=== PATIENT | male | born 1960 | race Caucasian/White ===

== ENCOUNTER 2020-02-13 15:41 | Outpatient (CLI) | payer OTHER, MEDICARE, SELFPAY ==
[2020-02-13 16:09] LABS: Hematocrit 45.7 % (42.0-52.0); Hemoglobin 15.5 g/dL (14.0-18.0); Mean Corpuscular HGB Conc 33.9 g/dl (32-36); Mean Corpuscular Hemoglobin 30.9 pg (26-34); Mean Platelet Volume 12.2 fl (7.4-10.4); Platelet Count Result 237 k/mm3 (150-375); Red Blood Count 5.02 M/mm3 (4.6-6.20); Red Cell Distribution Width 14.1 % (11.5-14.5); White Blood Count 8.9 K/mm3 (4.5-10.0)
[2020-02-13 16:18] LABS: Add Urine Microscopic? YES; Appearance Urine Clear (Clear); Bilirubin Urine Negative (Negative); Blood Urine Negative (Negative); Color Urine Straw (Yellow); Glucose Urine UA 3+ mg/dL (Negative); Ketones Urine Negative (Negative); Leukocyte Esterase Ur Negative LEU/UL (Negative); Mucus Urine Rare /lpf; Nitrate Urine Negative (Negative); Protein Urine Negative (Negative); RBC Urine 0-2 /hpf (0-2); Specific Grav Ur 1.012 (1.001-1.035); Squamous Epithelial Cell Urine Rare /hpf (Few); Urobilinogen Urine Negative mg/dL (<2.0); WBC Urine 0-3 /hpf
[2020-02-21 19:03] LABS: Blood Urea Nitrogen 21 mg/dL (9-20); Calcium 8.8 mg/dL (8.4-10.2); Carbon Dioxide 17 mmol/L (22-30); Chloride 94 mmol/L (98-107); Estimated Glomerular Filt Rate > 60; Glucose 380 mg/dL (75-110); Potassium 4.5 mmol/L (3.4-5.0); Sodium 130 mmol/L (137-145)
== END 2020-02-13 15:42 | disposition home or self-care (01) ==
PROVIDERS: PCP Family Medicine; Visit Provider Physician Assistant Medical
DX: R53.1 Weakness (principal); E11.65 Type 2 diabetes mellitus with hyperglycemia
CPT/HCPCS: 36415; 80048; 81001; 82607; 83036; 84443; 85027

== ENCOUNTER 2020-05-11 01:10 | Emergency (ER) | payer OTHER, MEDICARE, SELFPAY ==
[2020-05-11 01:10] VITALS: BP 174/86; PULSE 60; RESP 20; TEMP 36.6; O2SAT 96
[2020-05-11 01:25] LABS: Glucose Point of Care > 500 (65-105)
--- NOTE | 2020-05-11 01:45 | ECG_ITS ---
Measurements Intervals [place] Rate: 61 P: CA: 0 QRS: -89 QRSD: 174 T: 99 QT: 464 QTc: 468 Interpretive Statements ELECTRONIC VENTRICULAR PACEMAKER VENTRICULAR PREMATURE COMPLEXES UNDERLYING PROBABLY ATRIAL FIBRILLATION NO FURTHER INTERPRETATION IS POSSIBLE ABNORMAL ECG Electronically Signed On 05-11-2020 8:05:18 CDT by Andrew Davidson D.O.
--- NOTE | 2020-05-11 01:46 | ED.GENADULT ---
HPI - General Adult General Chief complaint: Fall Stated complaint: FALL Time Seen by Provider: 05/11/20 01:15 History of Present Illness HPI narrative: Patient presents with his for falling in the bedroom and urinating on himself on the floor. He has been feeling weak today. His sugar here is greater than 500, but he does not know what it runs at home because he does not check it. He is on both insulin and pills. She said he has been having tremor when he holds things and difficulty walking. He reports only a little pain in his left knee from the fall. He has not been sick in the last week or 2. His surgeries include a right knee replacement, and a defibrillator. He does not smoke cigarettes, occasionally drinks alcohol, does not do marijuana. Onset (ago): hour(s) Related Data Home Medications Medication Instructions Recorded Confirmed divalproex 500 mg tablet,delayed 500 mg PO Q12H 10/30/19 release insulin NPH isoph U-100 human 100 72 unit SUB-Q BID ml 10/30/19 unit/mL subcutaneous suspension insulin aspart U-100 100 unit/mL 1 sliding scale dose SUB-Q 10/30/19 subcutaneous solution USEASDIRECTD metoprolol succinate 100 mg 150 mg PO DAILY tablet 10/30/19 tablet,extended release 24 hr warfarin 5 mg tablet 5 mg PO QTUTHSASU 10/30/19 Allergies Allergy/AdvReac Type Severity Reaction Status Date / Time No Known Allergies Allergy Verified 05/11/20 01:18 Review of Systems Review of Systems: Narrative: CONSTITUTIONAL: Denies fever, chills, or sweats. EYES: Denies visual changes, redness, or discharge. ENT: Denies rhinorrhea, congestion, sore throat, or otalgia. CARDIOVASCULAR: Denies chest pain, palpitations, or edema. RESPIRATORY: Denies cough or dyspnea. GASTROINTESTINAL: Denies abdominal pain, but he did have nausea, and vomiting. GENITOURINARY: Denies dysuria or hematuria. He did have urinary incontinence at home. SKIN: Denies rash or itching. MUSCULOSKELETAL: Denies back pain, joint pain, or myalgia. Discomfort in the left knee from the fall. NEUROLOGIC: Denies headache, numbness, but has weakness. . [facility] Past Medical History Medical History (Updated 05/11/20 @ 04:00 by Latoya Womack MD) Anticoagulation management encounter Atrial fibrillation with RVR Essential hypertension Obstructive sleep apnea Surgical History Surgical History (Updated 05/11/20 @ 01:49 by Latoya Womack MD) History of knee replacement Social History Social History Smoking status: Never smoker Alcohol intake: current Exam Narrative: Exam Narrative: GENERAL: Well-appearing, well-nourished, and in no acute distress. Morbid obesity. HEAD: Normocephalic, atraumatic. EYES: PERRLA and EOMI. ENT: Nares clear, no rhinorrhea or epistaxis. Mucous membranes moist. NECK: Supple. CHEST: Clear to auscultation. No respiratory distress. HEART: Regular rate and rhythm. No murmur heard. Normal peripheral pulses. ABDOMEN: Soft, nontender, nondistended, normal active bowel sounds. EXTREMITIES: Normal range of motion. No edema. Abrasions on the left knee. SKIN: Warm, dry, no rash. NEURO: No focal deficits. Alert and oriented x3. PSYCH: Normal mood and affect. Course Reevaluation(s) Reevaluation #1: The patient feels better after the IV fluids and the lower blood sugar. We talked about the high triglycerides, and the said that has been not addressed since he moved here in 2018. She has been having trouble with the insurance coverage for his diabetic supplies. She also is having trouble caring for him at home, as he will not use the walker and has frequent falls. She also complains that he occasionally has a tremor and has trouble holding things. I offered her to see Dr. Sharif for follow-up, and she accepts. She does not need any refills, and she is willing to take him back home. I suggested that if he does not improve, that she might need additional care an
[2020-05-11 01:52] LABS: Add Urine Microscopic? YES; Appearance Urine Clear (Clear); Bilirubin Urine Negative (Negative); Blood Urine Negative (Negative); Color Urine Straw (Yellow); Glucose Urine UA 3+ mg/dL (Negative); Ketones Urine Trace mg/dL (Negative); Leukocyte Esterase Ur Negative LEU/UL (Negative); Nitrate Urine Negative (Negative); Protein Urine 2+ mg/dL (Negative); RBC Urine 0-2 /hpf (0-2); Squamous Epithelial Cell Urine Rare /hpf (Few); Urobilinogen Urine Negative mg/dL (<2.0); WBC Urine 0-3 /hpf
[2020-05-11] MEDS: INSULIN HUMAN REGULAR (*BKC) 100 UNITS/ML 13 UNITS IV PUSH ×2 (01:59→03:13)
[2020-05-11] MEDS: SODIUM CHLORIDE 0.9% IV 1,000 ML 999 ML IV CONT ×2 (01:59→03:13)
[2020-05-11 02:01] VITALS: BP 153/68; PULSE 61; RESP 20; O2SAT 95
[2020-05-11 02:12] LABS: Specific Grav Ur 1.035 (1.001-1.035)
[2020-05-11 02:25] LABS: Basophils Absolute Auto 0.1 K/mm3 (0.0-0.1); Basophils Percent Auto 0.6 % (0.2-1.2); Hematocrit 44.7 % (42.0-52.0); Immature Granulocyte Absolute 0.32 K/mm3 (0.00-0.031); Immature Granulocyte Percent A 2.5 % (0-0.5); Immature Platelet Fraction Pct 5.5 % (0.9-11.2); Lymphocytes Absolute Auto 1.91 K/mm3 (0.9-3.2); Lymphocytes Percent Auto 14.9 % (18.3-44.2); Mean Corpuscular Volume 87.6 fl (80-100); Mean Platelet Volume 11.9 fl (7.4-10.4); Monocytes Percent Auto 8.1 % (2.6-8.5); Neutrophils Absolute Auto 9.4 K/mm3 (1.3-6.7); Neutrophils Percent Auto 73.9 % (45.5-73.1); Platelet Count Result 269 k/mm3 (150-375); Red Cell Distribution Width 13.5 % (11.5-14.5); White Blood Count 12.8 K/mm3 (4.5-10.0)
[2020-05-11 02:44] VITALS: BP 155/70; PULSE 60; RESP 20; O2SAT 97
[2020-05-11 02:44] LABS: Potassium 4.5 mmol/L (3.4-5.0)
[2020-05-11 02:45] LABS: Blood Urea Nitrogen 14 mg/dL (9-20); Chloride 94 mmol/L (98-107); Estimated Glomerular Filt Rate > 60
[2020-05-11 02:46] LABS: Glucose 474 mg/dL (75-110)
[2020-05-11 02:47] LABS: Glucose Point of Care 343 (65-105)
[2020-05-11 02:47] LABS: Sodium 128 mmol/L (137-145)
[2020-05-11 03:43] LABS: Base Excess ABG 0.3 mEq/l (+/-2.0); Fractional Inspired Oxygen 21 %; HCO3 ABG 24.8 mEq/l (22.0-26.0); Oxyhemoglobin 94.2 % THb (90.0-100.0); PCO2 ABG 39.7 mmHg (35.0-45.0); Total Hemoglobin 13.5 g/dL (12.0-18.0)
[2020-05-11 03:44] LABS: Device ROOM AIR; Modified Allen's Test Pass; Site Drawn RIGHT RADIAL
[2020-05-11 03:53] LABS: pH ABG 7.414 (7.350-7.450)
[2020-05-11 04:05] VITALS: BP 159/59; PULSE 60; RESP 20; O2SAT 96
[2020-05-11 04:21] LABS: Glucose Point of Care 199 (65-105)
== END 2020-05-11 04:20 | disposition home or self-care (01) ==
PROVIDERS: Emergency Provider Emergency Medicine; PCP Family Medicine
DX: E11.65 Type 2 diabetes mellitus with hyperglycemia (principal); R29.6 Repeated falls; I49.3 Ventricular premature depolarization; R53.1 Weakness; I48.91 Unspecified atrial fibrillation; Z79.01 Long term (current) use of anticoagulants; I10 Essential (primary) hypertension; G47.33 Obstructive sleep apnea (adult) (pediatric); Z96.659 Presence of unspecified artificial knee joint; Z95.0 Presence of cardiac pacemaker; Z79.84 Long term (current) use of oral hypoglycemic drugs; Z79.4 Long term (current) use of insulin
CPT/HCPCS: 36415; 36600; 80048; 80053; 81001; 82010; 82805; 82948; 83735; 83880; 84100; 84484; 85025; 85055; 93005; 96361; 96374; 96376; 99284; J1815; J7030

== ENCOUNTER 2020-05-12 15:05 | Emergency (ER) | payer OTHER, MEDICARE, SELFPAY ==
--- NOTE | ~2020-05-12 | XR_ITS ---
EXAMINATION: XR chest 2V DATE: 05/12/2020 15:39 INDICATION: Hypertension. Frequent falls. TECHNIQUE: Frontal and lateral views of the chest were obtained. COMPARISON: Chest 2 views 07/08/2019 FINDINGS: There is no pneumonia, pleural effusion, or pneumothorax. Cardiomegaly is noted. There is a left chest pacer/defibrillator with leads in right ventricle and coronary sinus. Surgical clips in t he right upper quadrant are likely from cholecystectomy. IMPRESSION: 1. Cardiomegaly. Reviewed, dictated and finalized at location A. IMPRESSION: 1. Cardiomegaly.
--- NOTE | ~2020-05-12 | CT_ITS ---
EXAMINATION: CT brain wo con DATE: 05/12/2020 16:13 INDICATION: Weakness. Neurological symptoms. TECHNIQUE: Computed tomography (CT) of the head was performed without intravenous contrast. The mA wa s adjusted according to patient size. Iterative reconstruction technique was employed. The dose-lengt h product was 681.00 mGy-cm. COMPARISON: Head CT 03/19/2019, brain MRI 04/12/2019 FINDINGS: There are scattered areas of low attenuation in the cerebral white matter. There is no intr acranial hemorrhage, acute infarction, or abnormal intracranial mass lesion. The ventricles are munira l in size. There is mild mucosal thickening in the paranasal sinuses. The orbits are normal. The mast oid air cells are normal. IMPRESSION: 1. Stable mild nonspecific cerebral white matter disease, which likely represents chronic small vesse l ischemic disease. Reviewed, dictated and finalized at location A. IMPRESSION: 1. Stable mild nonspecific cerebral white matter disease, which likely represen ts chronic small vessel ischemic disease.
[2020-05-12 15:11] VITALS: BP 154/100; PULSE 63; RESP 19; TEMP 36.8; O2SAT 100
--- NOTE | 2020-05-12 15:11 | ECG_ITS ---
Measurements Intervals [place] Rate: 60 P: OR: 0 QRS: -72 QRSD: 153 T: -22 QT: 484 QTc: 484 Interpretive Statements ELECTRONIC VENTRICULAR PACEMAKER UNDERLYING PROBABLY ATRIAL FIBRILLATION BASELINE ARTIFACT- I NO FURTHER INTERPRETATION IS POSSIBLE ABNORMAL ECG Electronically Signed On 05-12-2020 15:38:10 CDT by Andrew Davidson D.O.
[2020-05-12 15:29] LABS: Basophils Absolute Auto 0.1 K/mm3 (0.0-0.1); Basophils Percent Auto 1.3 % (0.2-1.2); Eosinophils Percent Auto 0.3 % (0-4.4); Hematocrit 42.4 % (42.0-52.0); Hemoglobin 15.2 g/dL (14.0-18.0); Immature Granulocyte Absolute 0.26 K/mm3 (0.00-0.031); Immature Granulocyte Percent A 3.9 % (0-0.5); Lymphocytes Absolute Auto 1.99 K/mm3 (0.9-3.2); Lymphocytes Percent Auto 29.6 % (18.3-44.2); Mean Corpuscular HGB Conc 35.8 g/dl (32-36); Mean Corpuscular Hemoglobin 32.8 pg (26-34); Mean Corpuscular Volume 91.6 fl (80-100); Mean Platelet Volume 12.2 fl (7.4-10.4); Monocytes Absolute Auto 0.5 K/mm3 (0.1-0.6); Monocytes Percent Auto 7.6 % (2.6-8.5); Neutrophils Absolute Auto 3.9 K/mm3 (1.3-6.7); Neutrophils Percent Auto 57.3 % (45.5-73.1); Platelet Count Result 182 k/mm3 (150-375); Red Blood Count 4.63 M/mm3 (4.6-6.20); Red Cell Distribution Width 13.7 % (11.5-14.5); White Blood Count 6.7 K/mm3 (4.5-10.0)
--- NOTE | 2020-05-12 18:23 | ED.GENADULT ---
HPI - General Adult General Chief complaint: Weakness Stated complaint: neurological symptoms Time Seen by Provider: 05/12/20 18:07 History of Present Illness HPI narrative: Patient is a 59 y/o male complaining of frequent fall. He states that he was evaluated here in ED for hyperglycemia 2 days ago. He feels unsteady and fell after he was discharged. He contacted his PCP today and was told to return to ED for evaluation of possible stroke. He states that he has mild back pain due to the fall. He denies passing out. He denies any focal weakness/numbness or any difficulty with speech. He has been falling frequently, perhaps twice weekly for last 2 months. He states that he is up to date on Tetanus shot and his last one was 2 years ago. Related Data Home Medications Medication Instructions Recorded Confirmed divalproex 500 mg tablet,delayed 500 mg PO Q12H 10/30/19 release insulin NPH isoph U-100 human 100 72 unit SUB-Q BID ml 10/30/19 unit/mL subcutaneous suspension insulin aspart U-100 100 unit/mL 1 sliding scale dose SUB-Q 10/30/19 subcutaneous solution USEASDIRECTD metoprolol succinate 100 mg 150 mg PO DAILY tablet 10/30/19 tablet,extended release 24 hr warfarin 5 mg tablet 5 mg PO QTUTHSASU 10/30/19 Allergies Allergy/AdvReac Type Severity Reaction Status Date / Time No Known Allergies Allergy Verified 05/11/20 01:18 Review of Systems Constitutional: Constitutional: Denies chills, Denies fever(s), Denies headache(s) and Denies weakness Eyes: Eyes: Denies blurry vision ENT: Denies headache(s) and Denies neck pain Cardiovascular: Cardiovascular: Denies chest pain and Denies dyspnea Respiratory: Respiratory: Denies cough and Denies dyspnea Gastrointestinal: Gastrointestinal: Denies abdominal pain, Denies diarrhea, Denies nausea and Denies vomiting Genitourinary: Genitourinary: Denies hematuria and Denies dysuria Musculoskeletal: Musculoskeletal: Denies back pain and Denies neck pain Neurologic: Reports as per HPI, Denies headache(s), Reports lack of coordination and Denies weakness PMFSH Past Medical History Medical History Anticoagulation management encounter Atrial fibrillation with RVR Essential hypertension Obstructive sleep apnea Surgical History Surgical History History of knee replacement Family History Family History Other Diabetes mellitus Family history of Alzheimer's disease Family history of coronary artery disease Social History Social History Smoking status: Never smoker Alcohol intake: current Gender identity (if verbalized by the patient): Male Exam Const: General: no acute distress and well developed Orientation/consciousness: oriented to person, oriented to place, oriented to time and patient oriented x3 HENMT: Head: normocephalic Ears: external ears normal General nose exam: Normal external nose present Eyes: General: appearance normal, both eyes and all related structures Conjunctivae: conjunctivae normal Neck: Neck: normal visual inspection and full ROM Chest: Chest palpation & inspection: normal inspection of the chest and no tenderness Resp: Effort & Inspection: normal respiratory effort Auscultation: clear to auscultation bilaterally Cardio: Rate: regular rate Rhythm: regular rhythm GI: GI Palp: No abdominal tenderness and Yes Soft to palpation Skin: General skin exam: normal color and turgor normal Trauma: abrasion (left knee) Neuro: General: oriented to person, oriented to place, oriented to time and patient oriented x3 Cranial nerves: Yes CN's II-XII intact bilaterally Cognition (Neuro): normal cognition Speech: normal speech Motor exam (neuro): 5/5 motor strength present throughout Sensory Exam: normal sensation Coordi
[2020-05-12 19:11] LABS: INR 1.2; Prothrombin Time 14.5 Seconds (11.1-14.7)
[2020-05-12 19:12] LABS: Partial Thromboplastin Time 27.8 SECONDS (22.3-36.8)
[2020-05-12 20:00] VITALS: BP 158/89; PULSE 64; RESP 15; O2SAT 97
--- NOTE | 2020-05-12 20:30 | PC.NURSE ---
talked to lab after multiple specimens were unreceived, had lab come up and draw pt and their draw was unrecived, lab said blood was to fatty
[2020-05-12 20:46] LABS: Add Urine Microscopic? YES; Appearance Urine Clear (Clear); Bilirubin Urine Negative (Negative); Blood Urine Negative (Negative); Color Urine Yellow (Yellow); Glucose Urine UA 3+ mg/dL (Negative); Ketones Urine 1+ mg/dL (Negative); Leukocyte Esterase Ur Negative LEU/UL (Negative); Mucus Urine Few /lpf; Nitrate Urine Negative (Negative); Protein Urine 2+ mg/dL (Negative); Squamous Epithelial Cell Urine Rare /hpf (Few); WBC Urine 0-3 /hpf
[2020-05-12 20:58] LABS: Specific Grav Ur 1.036 (1.001-1.035)
[2020-05-12 21:00] VITALS: BP 160/89; PULSE 60; RESP 16; O2SAT 98
[2020-05-12 21:31] LABS: Sodium 135 mmol/L (137-145)
[2020-05-12 21:32] LABS: Bilirubin,Total 0.8 mg/dL (0.2-1.3); Blood Urea Nitrogen 16 mg/dL (9-20); Calcium 8.7 mg/dL (8.4-10.2); Carbon Dioxide 22 mmol/L (22-30); Chloride 99 mmol/L (98-107); Estimated CRCL calculation 120 ml/min; Estimated Glomerular Filt Rate > 60; Glucose 259 mg/dL (75-110)
[2020-05-12 21:57] VITALS: BP 161/90; PULSE 60; RESP 16; O2SAT 98
== END 2020-05-12 22:23 | disposition home or self-care (01) ==
PROVIDERS: Emergency Medicine; Emergency Provider Emergency Medicine; PCP Family Medicine
DX: S80.212A Abrasion, left knee, initial encounter (principal); I48.91 Unspecified atrial fibrillation; Z79.01 Long term (current) use of anticoagulants; G47.30 Sleep apnea, unspecified; W19.XXXA Unspecified fall, initial encounter
CPT/HCPCS: 36415; 70450; 71046; 80053; 80164; 81001; 82948; 85025; 85610; 85730; 93005; 99284

== ENCOUNTER 2020-05-29 08:21 | Outpatient (CLI) | payer OTHER, MEDICARE, SELFPAY ==
[2020-05-29 09:27] LABS: LDL Cholesterol Direct < 30 mg/dL
[2020-05-29 10:11] LABS: Cholesterol 256 mg/dL (0-200); Glucose 370 mg/dL (75-110)
[2020-05-29 10:20] LABS: Triglycerides > 2625 mg/dL (<150)
[2020-06-02 07:21] LABS: Glutamic acid decarboxylase AA <5 IU/mL (<5)
[2020-06-05 22:26] LABS: Islet Cell Antibody Screen NEGATIVE (NEGATIVE)
== END 2020-05-29 08:22 | disposition home or self-care (01) ==
LOC: ANHLAB 08:26
PROVIDERS: PCP Family Medicine; Visit Provider Internal Medicine Endocrinology, Diabetes & Metabolism
DX: E11.69 Type 2 diabetes mellitus with other specified complication (principal); E66.9 Obesity, unspecified
CPT/HCPCS: 36415; 80061; 82947; 84681; 86341

== ENCOUNTER 2020-07-01 17:01 | Outpatient (CLI) | payer OTHER, MEDICARE, SELFPAY ==
--- NOTE | ~2020-07-01 | US_ITS ---
US venous doppler [facility] DATE: 07/01/2020 17:31 INDICATION: Localized edema lower extremities TECHNIQUE: Real-time and color flow imaging and Doppler analysis of the veins of the lower extremitie s COMPARISON: 12/30/2018 bilateral lower extremity venous duplex examination FINDINGS: There is spontaneous and phasic flow and normal augmentation and color flow signal and norm al compression of the deep veins of both lower extremities. The greater saphenous veins are patent. IMPRESSION: No evidence of deep venous thrombosis of the lower extremities Reviewed, dictated and finalized at Location A. Reviewed, dictated and finalized at location A.
[2020-07-01 17:52] LABS: Hematocrit 41.2 % (42.0-52.0); Hemoglobin 13.6 g/dL (14.0-18.0); Mean Corpuscular Hemoglobin 30.4 pg (26-34); Mean Corpuscular Volume 92.2 fl (80-100); Mean Platelet Volume 11.4 fl (7.4-10.4); Platelet Count Result 199 k/mm3 (150-375); Red Blood Count 4.47 M/mm3 (4.6-6.20); Red Cell Distribution Width 13.7 % (11.5-14.5); White Blood Count 9.5 K/mm3 (4.5-10.0)
[2020-07-01 18:02] LABS: INR 1.1; Prothrombin Time 13.9 Seconds (11.1-14.7)
[2020-07-01 18:05] LABS: Alanine Aminotransferase 26 U/L (4-50); Albumin Level 4.3 g/dL (3.5-5.1); Alkaline Phosphatase 58 U/L (38-126); Anion Gap 10 mmol/L (8-16); Aspartate Amino Transferase 24 U/L (17-59); Bilirubin,Total 0.6 mg/dL (0.2-1.3); Blood Urea Nitrogen 15 mg/dL (9-20); Carbon Dioxide 25 mmol/L (22-30); Chloride 103 mmol/L (98-107); Cholesterol 120 mg/dL (0-200); Estimated Glomerular Filt Rate > 60; Glucose 86 mg/dL (75-110); HDL Direct 26 mg/dL; Potassium 4.6 mmol/L (3.4-5.0); Sodium 138 mmol/L (137-145); Triglycerides 291 mg/dL (<150)
[2020-07-01 18:15] LABS: LDL Cholesterol Direct 53 mg/dL
== END 2020-07-01 17:02 | disposition home or self-care (01) ==
PROVIDERS: Internal Medicine Endocrinology, Diabetes & Metabolism; PCP Family Medicine; Visit Provider Nurse Practitioner Family
DX: R60.0 Localized edema (principal); E11.65 Type 2 diabetes mellitus with hyperglycemia; E66.9 Obesity, unspecified; E78.1 Pure hyperglyceridemia; Z87.19 Personal history of other diseases of the digestive system; Z92.29 Personal history of other drug therapy
CPT/HCPCS: 36415; 80053; 80061; 85027; 85610; 93970

== ENCOUNTER 2020-08-26 10:53 | Outpatient (CLI) | payer OTHER, MEDICARE, SELFPAY ==
--- NOTE | ~2020-08-26 | XR_ITS ---
EXAMINATION: XR chest 2V DATE: 08/26/2020 11:54 INDICATION: Shortness of breath TECHNIQUE: PA and lateral views of the chest were obtained. COMPARISON: Chest radiograph dated 05/12/2020 FINDINGS: New elevation of the right hemidiaphragm. No airspace opacities, pulmonary edema, pleural effusion or pneumothorax. Cardiomegaly. Three lead pacemaker/AICD seen with leads projecting over the expected l ocations of the right atrial appendage, apex of the right ventricle and overlying the left ventricle likely having traversed the coronary sinus. Cholecystectomy clips in the right upper quadrant. Mild t horacic spondylosis. IMPRESSION: 1. New elevation of the right hemidiaphragm. No acute cardiopulmonary disease. 2. Cardiomegaly. Reviewed, dictated and finalized at location B.
[2020-08-26 11:43] LABS: Basophils Percent Auto 0.6 % (0.2-1.2); Eosinophils Absolute Auto 0.1 K/mm3 (0-0.3); Eosinophils Percent Auto 1.3 % (0-4.4); Hematocrit 46.4 % (42.0-52.0); Hemoglobin 15.1 g/dL (14.0-18.0); Immature Granulocyte Absolute 0.08 K/mm3 (0.00-0.031); Immature Granulocyte Percent A 1.1 % (0-0.5); Lymphocytes Absolute Auto 2.77 K/mm3 (0.9-3.2); Lymphocytes Percent Auto 39.3 % (18.3-44.2); Mean Corpuscular HGB Conc 32.5 g/dl (32-36); Mean Corpuscular Volume 86.1 fl (80-100); Mean Platelet Volume 11.8 fl (7.4-10.4); Monocytes Absolute Auto 0.7 K/mm3 (0.1-0.6); Monocytes Percent Auto 9.8 % (2.6-8.5); Neutrophils Absolute Auto 3.4 K/mm3 (1.3-6.7); Neutrophils Percent Auto 47.9 % (45.5-73.1); Platelet Count Result 171 k/mm3 (150-375); Red Blood Count 5.39 M/mm3 (4.6-6.20); Red Cell Distribution Width 13.2 % (11.5-14.5); White Blood Count 7.1 K/mm3 (4.5-10.0)
[2020-08-26 11:55] LABS: Anion Gap 9 mmol/L (8-16); Blood Urea Nitrogen 18 mg/dL (9-20); Calcium 9.3 mg/dL (8.4-10.2); Carbon Dioxide 32 mmol/L (22-30); Chloride 100 mmol/L (98-107); Estimated Glomerular Filt Rate > 60; Glucose 229 mg/dL (75-110); Potassium 4.6 mmol/L (3.4-5.0); Sodium 141 mmol/L (137-145)
[2020-08-26 12:03] LABS: NT Pro B Type Natriuretic Pept 1960 PG/ML (5-100)
== END 2020-08-26 10:54 | disposition home or self-care (01) ==
PROVIDERS: PCP Family Medicine; Visit Provider Nurse Practitioner Family
DX: R06.02 Shortness of breath (principal); M25.471 Effusion, right ankle; M25.472 Effusion, left ankle; R05 Cough; D64.9 Anemia, unspecified
CPT/HCPCS: 36415; 71046; 80048; 83880; 85025

== ENCOUNTER 2020-09-03 08:23 | Outpatient (CLI) | payer OTHER, MEDICARE, SELFPAY ==
--- NOTE | ~2020-09-03 | XR_ITS ---
EXAMINATION: XR lumbar spine 2-3V EXAM DATE: 09/03/2020 08:55 INDICATION: M54.5 - Low back pain- Injury X 3 Months Ago . TECHNIQUE: Lumber spine frontal, lateral, lateral L5-S1 projections for interpretation. There is no prior study for comparison. FINDINGS: The vertebral bodies are aligned in the AP dimension. There is mild diffuse lumbar disc di sease. Mild to moderate lower lumbar facet arthropathy. Sacrum, sacroiliac joints, sacral arcuate rodo es are intact. There are no bony erosions identified. Paraspinal soft tissue is unremarkable. No spon dylolysis suspected. IMPRESSION: Mild lumbar disc disease, mild to moderate arthropathy. Reviewed, dictated and finalized at location B. VITY ASSISTANT
== END 2020-09-03 08:24 | disposition home or self-care (01) ==
PROVIDERS: PCP Family Medicine; Visit Provider Nurse Practitioner Family
DX: M54.5 Low back pain (principal); M51.86 Other intervertebral disc disorders, lumbar region; M12.88 Other specific arthropathies, not elsewhere classified, other specified site
CPT/HCPCS: 72100

== ENCOUNTER 2020-09-03 14:54 | Observation (INO) | payer OTHER, MEDICARE, SELFPAY ==
[2020-09-03] VITALS (7 sets, daily range): BP systolic 136–144; BP diastolic 70–88; PULSE 60–80; RESP 16–20; TEMP 36.8; O2SAT 97–98; BMI 40.8
--- NOTE | ~2020-09-03 | CT_ITS ---
EXAMINATION: CT brain wo con EXAM DATE: 09/03/2020 16:08 INDICATION: Fall. Weakness. TECHNIQUE: Spiral CT of the head was performed without contrast. Axial, coronal and sagittal images were reviewed. The dose-length product (DLP) for this examination was 605.33 mGy-cm. The exposure w as tailored according to patient size, and iterative reconstruction (ASIR) was used as additional dos e reduction technique. Comparison is made to prior examination from 05/12/2020. FINDINGS: There is no acute intraparenchymal hemorrhage. No evidence of intraparenchymal brain mass lesion. No evidence of acute infarction. Please note that initial head CT has limited sensitivity f or small or acute infarctions. There is mild periventricular and subcortical hypodensity, nonspecific but probably related to small vessel ischemic disease. There is mild prominence of the sulci and v entricles related to cerebral atrophy. There is intracranial carotid arteriosclerosis. There are n o extra-axial collections. There is no mass effect or midline shift. The orbits are unremarkable. Soft tissue is unremarkable. The visualized sinuses and mastoid air cells are well aerated. IMPRESSION: 1. No acute intracranial findings. 2. Chronic age related findings. Reviewed, dictated and finalized at location B. WARE LICENSING ANALYST
--- NOTE | ~2020-09-03 | XR_ITS ---
EXAMINATION: XR chest 1V portable DATE: 09/03/2020 16:13 INDICATION: Alteration of awareness. TECHNIQUE: A single frontal view of the chest was obtained. COMPARISON: Chest 2 views 08/26/2020 FINDINGS: Again seen is mild elevation of right hemidiaphragm. No pleural effusion or pneumothorax. C ardiomegaly is noted. There is a left chest pacer/defibrillator with leads in right ventricle and cor onary sinus. Surgical clips in the right upper quadrant are likely from cholecystectomy. IMPRESSION: 1. Cardiomegaly. Reviewed, dictated and finalized at location A. SAW OPERATOR IMPRESSION: 1. Cardiomegaly.
--- NOTE | 2020-09-03 15:49 | ED.GENADULT ---
HPI - General Adult General Chief complaint: Unspecified Stated complaint: sob with exertion, freq falls he needs admission Time Seen by Provider: 09/03/20 15:35 Source: RN notes reviewed History of Present Illness HPI narrative: Patient presents emergency department from home for weakness. History is per the patient and the . For the past several months the patient's been progressively becoming more weak with frequent falls on almost daily basis. Per the the patient is on Coumadin and she has to work and is not at home to help during the day the patient has been discussed with walking with a cane or walker but does not use these at home and the patient has had several falls in the past week. They called his PCP and recommended come to the ED for further evaluation. Patient denies having any headaches vision changes chest painabdominal pain nausea vomiting diarrhea or any other symptoms. The patient does note that he did does have shortness of breath with exertion Related Data Home Medications Medication Instructions Recorded Confirmed insulin aspart U-100 100 unit/mL 1 sliding scale dose SUB-Q 10/30/19 08/18/20 subcutaneous solution USEASDIRECTD omega-3 fatty acids 1,000 mg 1,000 mg PO DAILY 05/28/20 08/18/20 capsule vitamin E (dl, acetate) 400 unit 450 mg PO DAILY 05/28/20 08/18/20 capsule metoprolol succinate 100 mg See Rx Instructions .ROUTE 06/11/20 08/18/20 tablet,extended release 24 hr .COMPLEX tablet Allergies Allergy/AdvReac Type Severity Reaction Status Date / Time No Known Allergies Allergy Verified 09/03/20 15:35 Review of Systems Review of Systems: Narrative: Gen.: Denies fevers or chills Eyes: Denies eye pain or visual change ENT: Denies congestion Respiratory: Reports shortness of breath with exertion CV: Denies chest pain or palpitations GI: Denies abdominal pain nausea, emesis or diarrhea denies burning, urgency, frequency or hematuria Musculoskeletal: Denies back pain or muscle pain Neuro: Reports weakness Skin: Denies rash Except as documented, all other systems reviewed and negative [facility] Past Medical History Medical History (Updated 09/03/20 @ 18:41 by Heriberto Valle DO) Anticoagulation management encounter Atrial fibrillation with RVR Depression Diabetes Essential hypertension Glaucoma Hyperlipidemia, unspecified Hypertension Obesity Obstructive sleep apnea Pacemaker Progressive neurological deficit SOB (shortness of breath) Surgical History Surgical History History of cholecystectomy History of knee replacement S/P TKR (total knee replacement) Family History Family History Other Diabetes mellitus Family history of Alzheimer's disease Family history of coronary artery disease Social History Social History Smoking status: Never smoker Alcohol intake: current Substance use: never Substance use type: does not use Gender identity (if verbalized by the patient): Male Exam Narrative: Exam Narrative: APPEARANCE: No acute distress, nontoxic, resting in bed EYES: EOMI, PERRL HEENT: Normocephalic, atraumatic, OMM RESPIRATORY: No respiratory distress Clear to auscultation bilaterally with no rhonchi wheezing or rales. CARDIOVASCULAR: Regular rate and rhythm without murmurs rubs or gallops. ABDOMINAL: Soft, nontender, nondistended, no rebound or guarding MUSCULOSKELETAl: Moves all extremities. No clubbing, cyanosis or edema. NEURO: Awake and alert x 4. Following commands, speech normal, no focal deficits muscle strength 5 out of 5 in the bilateral upper and lower extremities SKIN:: Warm, dry. No rashes lesions or abrasions PSYCHIATRIC: Normal affect/mood, Course Course Emergency Course: Had extensive discussion with patient and regarding possible fci plac
--- NOTE | 2020-09-03 15:51 | ECG_ITS ---
Measurements Intervals [place] Rate: 60 P: [place]: 0 QRS: 268 QRSD: 169 T: 112 QT: 491 QTc: 491 Interpretive Statements ELECTRONIC VENTRICULAR PACEMAKER BASELINE ARTIFACT- I, III, AVL, V1-V3 NO FURTHER INTERPRETATION IS POSSIBLE ATYPICAL ECG Electronically Signed On 09-03-2020 17:47:26 THREAD TWISTER by Andrew Davidson D.O.
[2020-09-03 16:01] LABS: Basophils Absolute Auto 0.1 K/mm3 (0.0-0.1); Basophils Percent Auto 0.5 % (0.2-1.2); Eosinophils Absolute Auto 0.9 K/mm3 (0-0.3); Eosinophils Percent Auto 9.6 % (0-4.4); Hematocrit 47.9 % (42.0-52.0); Immature Granulocyte Absolute 0.07 K/mm3 (0.00-0.031); Immature Granulocyte Percent A 0.8 % (0-0.5); Lymphocytes Absolute Auto 3.17 K/mm3 (0.9-3.2); Lymphocytes Percent Auto 34.7 % (18.3-44.2); Mean Corpuscular HGB Conc 33.4 g/dl (32-36); Mean Corpuscular Hemoglobin 28.7 pg (26-34); Mean Platelet Volume 12.3 fl (7.4-10.4); Monocytes Absolute Auto 0.8 K/mm3 (0.1-0.6); Monocytes Percent Auto 9.2 % (2.6-8.5); Neutrophils Absolute Auto 4.1 K/mm3 (1.3-6.7); Neutrophils Percent Auto 45.2 % (45.5-73.1); Platelet Count Result 201 k/mm3 (150-375); Red Blood Count 5.57 M/mm3 (4.6-6.20); Red Cell Distribution Width 13.4 % (11.5-14.5); White Blood Count 9.1 K/mm3 (4.5-10.0)
[2020-09-03 16:11] LABS: INR 1.2; Partial Thromboplastin Time 25.6 SECONDS (22.3-36.8); Prothrombin Time 15.8 Seconds (11.1-14.7)
[2020-09-03 16:13] LABS: Alanine Aminotransferase 22 U/L (4-50); Albumin Level 4.5 g/dL (3.5-5.1); Alkaline Phosphatase 68 U/L (38-126); Anion Gap 15 mmol/L (8-16); Aspartate Amino Transferase 26 U/L (17-59); Bilirubin,Total 0.5 mg/dL (0.2-1.3); Blood Urea Nitrogen 26 mg/dL (9-20); Calcium 9.2 mg/dL (8.4-10.2); Carbon Dioxide 28 mmol/L (22-30); Chloride 94 mmol/L (98-107); Estimated CRCL calculation 91 ml/min; Estimated Glomerular Filt Rate > 60; Glucose 430 mg/dL (75-110); Potassium 4.4 mmol/L (3.4-5.0); Sodium 137 mmol/L (137-145)
[2020-09-03 17:15] LABS: Add Urine Microscopic? YES; Appearance Urine Clear (Clear); Bilirubin Urine Negative (Negative); Blood Urine Negative (Negative); Color Urine Straw (Yellow); Glucose Urine UA 3+ mg/dL (Negative); Ketones Urine Negative (Negative); Leukocyte Esterase Ur Negative LEU/UL (Negative); Mucus Urine Rare /lpf; Nitrate Urine Negative (Negative); Protein Urine Negative (Negative); RBC Urine 0-2 /hpf (0-2); Specific Grav Ur 1.028 (1.001-1.035); Squamous Epithelial Cell Urine Rare /hpf (Few); Urobilinogen Urine Negative mg/dL (<2.0); WBC Urine 0-3 /hpf
--- NOTE | 2020-09-03 20:09 | ADMGEN ---
This patient, Chuck Moreno, was admitted to Medical Room 342-01. Patient/family oriented to hospital policies and general routines including ID bracelet, bed and alarms, visiting hours, pain management, procedures, bathroom and other care routines, personal items, smoking policy, room service/diet, and visiting hours. Information on how to activate the Rapid Response Team has been discussed. Patient/Family are encouraged to report perceived risks to care and to ask questions if they do not understand what they are told or what they should do.
[2020-09-03 20:21] LABS: Glucose Point of Care 267 (65-105)
[2020-09-03] MEDS: INSULIN ASPART (*BKC) 100 UNITS/ML 9 UNITS SUB-Q (22:57)
[2020-09-04] VITALS (11 sets, daily range): BP systolic 144–153; BP diastolic 71–88; PULSE 60–62; RESP 16–18; TEMP 35.7–36.4; O2SAT 96–100
[2020-09-04 06:51] LABS: Basophils Absolute Auto 0.1 K/mm3 (0.0-0.1); Basophils Percent Auto 0.7 % (0.2-1.2); Eosinophils Absolute Auto 0.2 K/mm3 (0-0.3); Eosinophils Percent Auto 2.2 % (0-4.4); Hematocrit 47.7 % (42.0-52.0); Hemoglobin 15.6 g/dL (14.0-18.0); Immature Granulocyte Absolute 0.06 K/mm3 (0.00-0.031); Immature Granulocyte Percent A 0.8 % (0-0.5); Lymphocytes Absolute Auto 2.74 K/mm3 (0.9-3.2); Lymphocytes Percent Auto 38.2 % (18.3-44.2); Mean Corpuscular HGB Conc 32.7 g/dl (32-36); Mean Corpuscular Hemoglobin 28.3 pg (26-34); Mean Corpuscular Volume 86.6 fl (80-100); Monocytes Absolute Auto 0.7 K/mm3 (0.1-0.6); Monocytes Percent Auto 10.3 % (2.6-8.5); Neutrophils Absolute Auto 3.4 K/mm3 (1.3-6.7); Neutrophils Percent Auto 47.8 % (45.5-73.1); Platelet Count Result 178 k/mm3 (150-375); Red Blood Count 5.51 M/mm3 (4.6-6.20); Red Cell Distribution Width 13.2 % (11.5-14.5); White Blood Count 7.2 K/mm3 (4.5-10.0)
[2020-09-04 07:30] LABS: Anion Gap 8 mmol/L (8-16); Blood Urea Nitrogen 23 mg/dL (9-20); Calcium 9.1 mg/dL (8.4-10.2); Carbon Dioxide 32 mmol/L (22-30); Chloride 98 mmol/L (98-107); Estimated CRCL calculation 113 ml/min; Estimated Glomerular Filt Rate > 60; Glucose 241 mg/dL (75-110); Potassium 3.8 mmol/L (3.4-5.0); Sodium 138 mmol/L (137-145)
--- NOTE | 2020-09-04 10:52 | WPDNEURCNPN ---
Assessment and Plan Assessment and plan (1) Gait instability: Code(s): R26.81 - Unsteadiness on feet Status: Acute (2) Falls frequently: Code(s): R29.6 - Repeated falls Status: Acute (3) Diabetes mellitus: Code(s): E11.9 - Type 2 diabetes mellitus without complications Status: Acute Additional Plan history of recurrent falls will benefit from the MRI of the cervical spine and subsequently EMG and nerve conduction studies at present his neuro examination is only suggestive of early neuropathy Consult date: 09/04/20 Time Seen: 10:52 HPI: Chuck Moreno is a 60 year old male has been admitted to the [facility] through the emergency room where he presented with the complaints of generalized weakness and recurrent falls. For the last several months patient has been progressively becoming weak and has been experiencing frequent falls almost on a daily basis patient is reportedly on Coumadin and does not follow through, walking with a cane or walker at home ,he has no history of associated headache visual difficulties or focal weakness of 1 side or other side, he has been taking multiple medications including the insulin in addition he has ongoing history of atrial fibrillation with rapid ventricular response, Essential hypertension, glaucoma, obstructive sleep apnea, and difficulties in breathing. He is a never smoker and current alcohol consumer [facility] Past Medical History Medical History Anticoagulation management encounter Atrial fibrillation with RVR Depression Diabetes Essential hypertension Glaucoma Hyperlipidemia, unspecified Hypertension Obesity Obstructive sleep apnea Pacemaker Progressive neurological deficit SOB (shortness of breath) Surgical History Surgical History History of cholecystectomy History of knee replacement S/P TKR (total knee replacement) Family History Family History Father Diabetes mellitus Family history of coronary artery disease Mother Diabetes mellitus Family history of Alzheimer's disease Sibling Diabetes mellitus Social History Social History Smoking status: Never smoker Alcohol intake: former Substance use: never Substance use type: does not use Living arrangements: with family Occupation/Education: other Gender identity (if verbalized by the patient): Male Spiritual care concerns: No Agree to blood products: Yes Meds Home Medications and Allergies Home Medications Medication Instructions Recorded Confirmed Type insulin aspart U-100 100 unit/mL 1 sliding scale dose SUB-Q 10/30/19 09/03/20 History subcutaneous solution USEASDIRECTD escitalopram oxalate 20 mg tablet 20 mg PO DAILY #90 tablet 02/13/20 09/03/20 Rx flash glucose scanning reader #1 each 02/13/20 09/03/20 Rx omeprazole 40 mg capsule,delayed 40 mg PO DAILY #90 cap 03/28/20 09/03/20 Rx release loratadine 10 mg tablet 10 mg PO DAILY #90 tablet 04/07/20 09/03/20 Rx flash glucose sensor #1 each 04/30/20 09/03/20 Rx blood sugar diagnostic #100 each 05/28/20 09/03/20 Rx blood-glucose meter #1 each 05/28/20 09/03/20 Rx flash glucose sensor #2 each 05/28/20 09/03/20 Rx insulin syringe-needle U-100 1 mL #200 each 05/28/20 09/03/20 Rx 31 gauge x 5/16 lancets #200 each 05/28/20 09/03/20 Rx omega-3 fatty acids 1,000 mg 3,200 mg PO DAILY 05/28/20 09/03/20 History capsule vitamin E (dl, acetate) 400 unit 400 mg PO DAILY 05/28/20 09/03/20 History capsule insulin human U-100 NPH-regulr See Rx Instructions SUB-Q BID 30 05/30/20 09/03/20 Rx 70-30 mix 100 unit/mL subcutaneous Days #30 ml susp glucagon HCl 1 mg solution for 1 mg SUB-Q ONCE PRN #1 each 06/11/20 09/03/20 Rx injection metoprolol succinate 100 mg 100 mg PO DIRECTED tablet
--- NOTE | 2020-09-04 12:28 | PM.IMHP ---
H&P: HPI History of Present Illness Date/Time: 09/04/20 12:28 Chief complaint: gait instability, frequent falls, hyperglycemia Narrative: Chuck Moreno is a 60 year old male admitted for general weakness in both his legs and frequent falls. Many fall described one was 3 months ago when he fell on his porch and hit his tail bone. Pt denies any speech or swallow trouble or focal weakness. Pt states he feels wobbly and then falls denies any cold feet or specific numbness. Pt has history of DM, SABRINA, HTN, morbid obesity, AF for which he is on coumadin for. CT head was negative, Cxr shows cardiomegaly. Labs unremarkable except high sugars, TSH and B12 are pending. Hb AIC was 12 in april, indicating poorly controlled DM. Review of Systems Review of Systems: All systems reviewed & are unremarkable except as noted in HPI and below ROS unobtainable: Yes other (Loss of confidence, imbalance frequent falls ) PMFSH Past Medical History Medical History Anticoagulation management encounter Atrial fibrillation with RVR Depression Diabetes Essential hypertension Glaucoma Hyperlipidemia, unspecified Hypertension Obesity Obstructive sleep apnea Pacemaker Progressive neurological deficit SOB (shortness of breath) Surgical History Surgical History History of cholecystectomy History of knee replacement S/P TKR (total knee replacement) Family History Family History Father Diabetes mellitus Family history of coronary artery disease Mother Diabetes mellitus Family history of Alzheimer's disease Sibling Diabetes mellitus Social History Social History Smoking status: Never smoker Alcohol intake: former Substance use: never Substance use type: does not use Living arrangements: with family Occupation/Education: other Gender identity (if verbalized by the patient): Male Spiritual care concerns: No Agree to blood products: Yes Meds Home Medications and Allergies Home Medications Medication Instructions Recorded Confirmed Type insulin aspart U-100 100 unit/mL 1 sliding scale dose SUB-Q 10/30/19 09/03/20 History subcutaneous solution USEASDIRECTD escitalopram oxalate 20 mg tablet 20 mg PO DAILY #90 tablet 02/13/20 09/03/20 Rx flash glucose scanning reader #1 each 02/13/20 09/03/20 Rx omeprazole 40 mg capsule,delayed 40 mg PO DAILY #90 cap 03/28/20 09/03/20 Rx release loratadine 10 mg tablet 10 mg PO DAILY #90 tablet 04/07/20 09/03/20 Rx flash glucose sensor #1 each 04/30/20 09/03/20 Rx blood sugar diagnostic #100 each 05/28/20 09/03/20 Rx blood-glucose meter #1 each 05/28/20 09/03/20 Rx flash glucose sensor #2 each 05/28/20 09/03/20 Rx insulin syringe-needle U-100 1 mL #200 each 05/28/20 09/03/20 Rx 31 gauge x 5/16 lancets #200 each 05/28/20 09/03/20 Rx omega-3 fatty acids 1,000 mg 3,200 mg PO DAILY 05/28/20 09/03/20 History capsule vitamin E (dl, acetate) 400 unit 400 mg PO DAILY 05/28/20 09/03/20 History capsule insulin human U-100 NPH-regulr See Rx Instructions SUB-Q BID 30 05/30/20 09/03/20 Rx 70-30 mix 100 unit/mL subcutaneous Days #30 ml susp glucagon HCl 1 mg solution for 1 mg SUB-Q ONCE PRN #1 each 06/11/20 09/03/20 Rx injection metoprolol succinate 100 mg 100 mg PO DIRECTED tablet 06/11/20 09/04/20 History tablet,extended release 24 hr glucagon (human recombinant) 1 mg 1 mg SUB-Q Q20M PRN #1 each 06/12/20 09/03/20 Rx solution for injection potassium chloride 20 mEq 20 meq PO DAILY #90 tablet 07/14/20 09/03/20 Rx tablet,extended release tizanidine 2 mg tablet 2 mg PO TID PRN #30 tablet 08/18/20 09/03/20 Rx metformin 500 mg tablet 1,000 mg PO BID #360 tablet 08/27/20 09/03/20 Rx atorvastatin [Lipitor] 40 mg PO DAILY 09/03/20 09/03/20 Histor
[2020-09-04] MEDS: INSULIN ASPART (*BKC) 100 UNITS/ML SUB-Q ×2 (12:42→16:36)
[2020-09-04 12:48] LABS: Glucose Point of Care 336 (65-105)
[2020-09-04] MEDS: ESCITALOPRAM OXALATE 10 MG TABLET 20 MG PO (13:35)
[2020-09-04] MEDS: ATORVASTATIN 40 MG TABLET PO (13:35)
[2020-09-04] MEDS: DIVALPROEX SODIUM 250 MG TABEC 500 MG PO ×2 (13:35→21:34)
[2020-09-04] MEDS: buPROPion HCL XL (24 HR) 150 MG TABCR 300 MG PO (13:36)
[2020-09-04] MEDS: LORATADINE 10 MG TABLET PO (13:36)
[2020-09-04] MEDS: POTASSIUM CHLORIDE 20 MEQ TABLET.ER PO (13:36)
[2020-09-04] MEDS: FUROSEMIDE 80 MG TABLET PO (13:36)
[2020-09-04 16:26] LABS: Glucose Point of Care 290 (65-105)
[2020-09-04] MEDS: WARFARIN (*PBKC) 3 MG TABLET 6 MG PO (16:39)
[2020-09-04 16:52] LABS: INR 1.1; Prothrombin Time 14.3 Seconds (11.1-14.7)
[2020-09-04] MEDS: INSULIN HUMAN ISOPHAN/REGULAR 70/30 (*BKC) 100 UNITS/ML 30 UNITS SUB-Q (17:00)
[2020-09-04] MEDS: metFORMIN HCL 500 MG TABLET 1000 MG PO (17:00)
[2020-09-04] MEDS: INSULIN ASPART (*BKC) 100 UNITS/ML 6 UNITS SUB-Q (21:28)
[2020-09-04] MEDS: METOPROLOL SUCCINATE EXT REL 100 MG TABCR PO (21:33)
[2020-09-04] MEDS: VITAMIN E 400 UNIT CAPSULE PO (21:34)
[2020-09-04 21:42] LABS: Glucose Point of Care 329 (65-105)
[2020-09-05] VITALS (7 sets, daily range): BP systolic 129–154; BP diastolic 78–94; PULSE 60–88; RESP 16; TEMP 35.6–36.4; O2SAT 100
[2020-09-05 01:53] LABS: Glucose Point of Care 213 (65-105)
[2020-09-05 07:00] LABS: INR 1.1; Prothrombin Time 14.7 Seconds (11.1-14.7)
[2020-09-05 07:39] LABS: Glucose Point of Care 244 (65-105)
[2020-09-05 08:07] LABS: Hemoglobin A1C 8.7 % (<5.7)
[2020-09-05] MEDS: INSULIN HUMAN ISOPHAN/REGULAR 70/30 (*BKC) 100 UNITS/ML 50 UNITS SUB-Q (08:17)
[2020-09-05] MEDS: INSULIN ASPART (*BKC) 100 UNITS/ML SUB-Q ×2 (08:17→12:07)
[2020-09-05] MEDS: ATORVASTATIN 40 MG TABLET PO (08:27)
[2020-09-05] MEDS: metFORMIN HCL 500 MG TABLET 1000 MG PO (08:27)
[2020-09-05] MEDS: METOPROLOL SUCCINATE EXT REL 100 MG TABCR 200 MG PO (08:27)
[2020-09-05] MEDS: buPROPion HCL XL (24 HR) 150 MG TABCR 300 MG PO (08:27)
[2020-09-05] MEDS: POTASSIUM CHLORIDE 20 MEQ TABLET.ER PO (08:29)
[2020-09-05] MEDS: FUROSEMIDE 80 MG TABLET PO (08:29)
[2020-09-05] MEDS: ESCITALOPRAM OXALATE 10 MG TABLET 20 MG PO (08:29)
[2020-09-05] MEDS: DIVALPROEX SODIUM 250 MG TABEC 500 MG PO (08:29)
[2020-09-05] MEDS: OMEGA 3 POLYUNSAT FATTY ACIDS 1 GM CAP 2 GM PO (08:29)
[2020-09-05] MEDS: LORATADINE 10 MG TABLET PO (08:29)
[2020-09-05] MEDS: PANTOPRAZOLE 40 MG TABLET PO (08:29)
--- NOTE | 2020-09-05 10:34 | WPDNEUROPN ---
Progress Note: A&P Assessment and Plan (1) Gait instability: Code(s): R26.81 - Unsteadiness on feet Status: Acute Additional Plan stable can be discharged and be scheduled for the EMG nerve conduction study as an outpatient Exam Narrative: Exam Narrative: he remains awake alert his speech nor dysphasic no dysarthric neck is supple heart regular lungs clear abdomen protuberant no organomegaly neurological is awake alert oriented x3 his speech nor dysphasic no dysarthric nor dysphonic the cranial examination is normal motor examination is symmetrical proximally and distally with intact reflexes and downgoing plantar responses had decreased sensation distally and has positive Romberg's Objective Data Vital Signs Vital Signs: Vital Signs - 24 hr 09/04/20 12:00 09/04/20 14:00 09/04/20 16:00 Temperature 35.7 C L Pulse Rate 62 60 60 Respiratory Rate 16 Blood Pressure 144/71 H Pulse Oximetry 98 09/04/20 20:00 09/04/20 20:43 09/04/20 21:26 Temperature 36.4 C Pulse Rate 61 62 Respiratory Rate 18 Blood Pressure 153/80 H Pulse Oximetry 96 09/04/20 21:33 09/05/20 00:00 09/05/20 04:00 Temperature Pulse Rate 60 60 60 Respiratory Rate Blood Pressure Pulse Oximetry 09/05/20 05:40 09/05/20 08:00 09/05/20 08:27 Temperature 36.4 C Pulse Rate 61 60 88 Respiratory Rate 16 Blood Pressure 154/94 H Pulse Oximetry 100 Intake/Output Intake/Output: Intake & Output 09/02/20 09/03/20 09/04/20 09/05/20 23:59 23:59 23:59 23:59 Intake Total 1690 200 Output Total 2550 400 Balance -860 -200 Meds/Results Medications: Active Medications Generic Name Dose Route Start Last Admin Trade Name Freq PRN Reason Stop Dose Admin Atorvastatin Calcium 40 mg 09/04/20 12:35 09/05/20 08:27 Atorvastatin 40 Mg Tablet PO 40 mg DAILY ROBERT Administration Bupropion HCl 300 mg 09/04/20 12:35 09/05/20 08:27 Bupropion Hcl Xl (24 Hr) 150 Mg Tabcr PO 300 mg QAM ROBERT Administration Dextrose 12.5 gm 09/04/20 11:41 Dextrose 50% 25 Gm/50 Ml Syringe IV PUSH PRN PRN Hypoglycemia Protocol Divalproex Sodium 500 mg 09/04/20 12:30 09/05/20 08:29 Divalproex Sodium 250 Mg Tabec PO 500 mg Q12HR ROBERT Administration Escitalopram Oxalate 20 mg 09/04/20 12:35 09/05/20 08:29 Escitalopram Oxalate 10 Mg Tablet PO 20 mg DAILY ROBERT Administration Fish Oil 2 gm 09/05/20 09:00 09/05/20 08:29 Casar 3 Polyunsat Fatty Acids 1 Gm Cap PO 2 gm BID ROBERT Administration Furosemide 80 mg 09/04/20 12:35 09/05/20 08:29 Furosemide 80 Mg Tablet PO 80 mg DAILY ROBERT Administration Glucagon 1 mg 09/04/20 11:41 Glucagon For Inj 1 Mg Vial IM PRN PRN Hypoglycemia Protocol Glucose 15 gm 09/04/20 11:41 Glucose Oral Gel 15 Gm Of Glucse In 37.5 Gm Tube PO PRN PRN Hypoglycemia Protocol Dextrose 1,000 mls @ 100 mls/hr 09/04/20 11:41 Dextrose 5% 1,000 Ml IVPB PRN PRN Hypoglycemia Protocol Insulin Aspart 2 - 5 units 09/04/20 12:00 09/05/20 08:17 Insulin Aspart (*Bkc) 100 Units/Ml SUB-Q 2 units TIDWM ROBERT Administration Protocol Insulin Human Isoph/Insulin Regular 50 units 09/05/20 08:00 09/05/20 08:17 Insulin Human Isophan/Regular 70/30 (*Bkc) 100 Units/Ml SUB-Q 50 units 0800 ROBERT Administration Insulin Human Isoph/Insulin Regular 30 units 09/04/20 17:00 09/04/20 17:00 Insulin Human Isophan/Regular 70/30 (*Bkc) 100 Units/Ml SUB-Q 30 units 1700 ROBERT Administration Loratadine 10 mg 09/04/20 12:35 09/05/20 08:29 Loratadine 10 Mg Tablet PO 10 mg DAILY ROBERT Administration Metformin HCl 1,000 mg 09/04/20 17:00 09/05/20 08:27 Metformin Hcl 500 Mg Tablet PO 1,000 mg BID ROBERT Administration Metoprolol Succinate 200 mg 09/05/20 09:00 09/05/20 08:27 Metoprolol Succinate Ext Rel 100 Mg Tabcr PO 200 mg QAM ROBERT Administration M
[2020-09-05 11:25] LABS: Glucose Point of Care 337 (65-105)
--- NOTE | 2020-09-05 13:31 | PM.DS ---
DS: Admitting Diagnosis Admitting Diagnosis Admitting Diagnosis: gait instability, frequent falls, hyperglycemia DS: Discharge Diagnosis Discharge Diagnosis (1) Falls frequently: Code(s): R29.6 - Repeated falls Status: Acute Assessment and Plan: Chuck Moreno is a 60 year old male admitted for general weakness in both his legs and frequent falls. Many fall described one was 3 months ago when he fell on his porch and hit his tail bone. Pt denies any speech or swallow trouble or focal weakness. Pt states he feels wobbly and then falls denies any cold feet or specific numbness. Pt has history of DM, SABRINA, HTN, morbid obesity, AF for which he is on coumadin for. CT head was negative, Cxr shows cardiomegaly. Pt to have PT/OT to fully assess gait instability Neurology consultation seen. MRI of the cervical spine and subsequently EMG and nerve conduction studies as outpatient. Pt to have HOME HEALTH SERVICES AT HOME for gait training and lost of confidence with frequent falls (2) Diabetes mellitus: Code(s): E11.9 - Type 2 diabetes mellitus without complications Status: Acute Assessment and Plan: Poorly control DM Aic was over 12 in april, rpt AIC is 8 here. (3) Gait instability: Code(s): R26.81 - Unsteadiness on feet Status: Acute Assessment and Plan: PT/OT Gait instability ? myelopathy/ neuropathy due to uncontrolled DM, better control of DM pt to follow with neurology for more investigations (4) Lower back pain: Code(s): M54.5 - Low back pain Status: Acute Assessment and Plan: Pain control (5) Essential hypertension: Code(s): I10 - Essential (primary) hypertension Status: Acute Assessment and Plan: Continue home medications (6) Obstructive sleep apnea: Code(s): G47.33 - Obstructive sleep apnea (adult) (pediatric) Status: Acute Assessment and Plan: CPAP (7) Uncontrolled type 2 diabetes mellitus with hyperglycemia: Code(s): E11.65 - Type 2 diabetes mellitus with hyperglycemia Status: Acute Assessment and Plan: BETTER DM DIET, CONTINUE MEDICATION HOME MEDICATIONS, PT SEES DR US, ENDOCRINOLOGY. (8) Anxiety and depression: Code(s): F41.9 - Anxiety disorder, unspecified; F32.9 - Major depressive disorder, single episode, unspecified Status: Acute Assessment and Plan: Continue home nmedications (9) Anticoagulation management encounter: Code(s): Z51.81 - Encounter for therapeutic drug level monitoring; Z79.01 - [facility] (current) use of anticoagulants Status: Acute Assessment and Plan: PT IS ON COUMADIN CONTINUE TO MONITOR INR DS: Summary Time Spent with Patient Time attestation: Total time spent providing and/or coordinating discharge services:40 minutes on day of discharge Exam Const: General: other (morbidly obese, sedentary ) Nutritional Appearance: well nourished HENMT: Head: normocephalic Eyes: General: appearance normal, both eyes and all related structures Pupils: Equal, round and reactive pupils present Neck: Neck: supple Chest: Chest palpation & inspection: normal inspection of the chest Resp: Effort & Inspection: normal respiratory effort Auscultation: clear to auscultation bilaterally Cardio: Jugular venous distension: no JVD Rhythm: regular rhythm Heart sounds: S1 normal heart sound present and S2 normal heart sound present GI: Inspection: normal to inspection Auscultation: normal bowel sounds Back/Spine/Pelvis: Back: other (TTP over sacral area ) Skin: General skin exam: normal color and dry skin Neuro: Cranial nerves: Yes CN's II-XII intact bilaterally and Yes Equal, round and reactive pupils present Cognition (Neuro): normal cognition Speech: normal speech Motor exam (neuro): 5/5 motor strength present throughout Extrem: General: normal to inspection Psych: Appearance: grossly normal Mental Status
== END 2020-09-05 15:00 | disposition home health service (06) ==
LOC: ANHED 18:41 → ANH3MED 21:19
PROVIDERS: Admitting Provider Internal Medicine; Emergency Provider Emergency Medicine; PCP Family Medicine; Visit Provider Family Medicine
DX: R26.89 Other abnormalities of gait and mobility (principal); R29.6 Repeated falls; M54.5 Low back pain; R29.818 Other symptoms and signs involving the nervous system; E11.65 Type 2 diabetes mellitus with hyperglycemia; I48.91 Unspecified atrial fibrillation; I10 Essential (primary) hypertension; E78.5 Hyperlipidemia, unspecified; G47.33 Obstructive sleep apnea (adult) (pediatric); F41.9 Anxiety disorder, unspecified; F32.9 Major depressive disorder, single episode, unspecified; H40.9 Unspecified glaucoma; E66.01 Morbid (severe) obesity due to excess calories; Z68.41 Body mass index [BMI] 40.0-44.9, adult; Z23 Encounter for immunization; Z79.01 Long term (current) use of anticoagulants; Z79.4 Long term (current) use of insulin; Z95.0 Presence of cardiac pacemaker; Z96.659 Presence of unspecified artificial knee joint
CPT/HCPCS: 36415; 70450; 71045; 80048; 80053; 81001; 82607; 82948; 83036; 84443; 85025; 85610; 85730; 90471; 90653; 93005; 97110; 97116; 97161; 97165; 99285; A9270; G0008; G0378; J1815

== ENCOUNTER 2020-10-16 13:53 | Observation (INO) | payer OTHER, MEDICARE, SELFPAY ==
--- NOTE | ~2020-10-16 | CT_ITS ---
EXAMINATION: CT brain wo con DATE: 10/16/2020 14:40 INDICATION: Leg weakness. Frequent falls. TECHNIQUE: Computed tomography (CT) of the head was performed without intravenous contrast. The dose- length product was 605.33 mGy-cm. Automated exposure control and iterative reconstruction technique w ere employed. COMPARISON: CT dated 09/03/2020 FINDINGS: Mild atrophy. There are scattered mild periventricular and subcortical white matter changes , most likely related to small vessel ischemic disease (microangiopathy). No ventriculomegaly or midl ine shift. There is intracranial atherosclerosis. No acute intracranial hemorrhage, infarction, mass or mass effect. Paranasal sinuses and mastoids are pneumatized. No depressed skull fractures. IMPRESSION: 1. No acute intracranial abnormality. 2: Chronic age-related findings. Reviewed, dictated and finalized at location A. ORATION SECRETARY
--- NOTE | ~2020-10-16 | XR_ITS ---
XR chest 1V portable DATE: 10/16/2020 15:24 INDICATION: Shortness of breath. Weakness. History of hypertension, atrial fibrillation. Pacemaker. TECHNIQUE: Portable AP chest on 10/16/2020 at 1524 hours COMPARISON: 09/03/2020 portable AP chest FINDINGS: Left-sided transvenous pacemaker device with leads overlying right atrium, right ventricle and coronary artery sinus. Heart size is not optimally evaluated on AP projection because of magnification. Minimal infiltrate o r atelectasis is suggested at the right lung base; there is mild elevation of the right leaf of the d iaphragm. The lungs otherwise appear clear. No pleural effusion or pneumothorax. Diffuse osteopenia. IMPRESSION: Left-sided pacemaker device Minimal infiltrate or atelectasis at right lung base, mild elevation right diaphragm Reviewed, dictated and finalized at location B. ELING CRANE OPERATOR IMPRESSION: Left-sided pacemaker device Minimal infiltrate or atelectasis at right lung base, mild elevation right diap hragm
--- NOTE | ~2020-10-16 | US_ITS ---
EXAMINATION: US venous doppler [facility] EXAM DATE: 10/17/2020 16:25 INDICATION: Left calf tenderness to palpation. TECHNIQUE: Multiple grayscale, color flow and Doppler images of the lower extremity deep venous syste ms bilaterally were obtained and reviewed. Comparison is made to prior examination from 07/01/2020. FINDINGS: Right side: The right common femoral, femoral and profunda veins demonstrate normal color flow, respi ratory variation, augmentation and compressibility. Compressibility, color flow confirmed within the right popliteal, posterior tibial, peroneal, and greater saphenous veins. Left side: The left common femoral, femoral and profunda veins demonstrate normal color flow, respira tory variation, augmentation and compressibility. Compressibility, color flow confirmed within the l eft popliteal, posterior tibial, peroneal, and greater saphenous veins. IMPRESSION: 1. No lower extremity deep venous thrombosis bilaterally. Reviewed, dictated and finalized at location A. MENTAL IRONWORKER
[2020-10-16 13:51] VITALS: BP 153/84; PULSE 60; RESP 20; TEMP 36.4; O2SAT 98
[2020-10-16 13:59] VITALS: PULSE 60
--- NOTE | 2020-10-16 14:00 | ECG_ITS ---
Measurements Intervals [place] Rate: 60 P: ND: 0 QRS: -87 QRSD: 166 T: 97 QT: 487 QTc: 487 Interpretive Statements ELECTRONIC VENTRICULAR PACEMAKER BASELINE ARTIFACT- I, II, III, AVR, AVL, AVF, V1 NO FURTHER INTERPRETATION IS POSSIBLE ATYPICAL ECG Electronically Signed On 10-16-2020 14:23:15 PV DESIGN ENGINEER by Andrew Davidson D.O.
--- NOTE | 2020-10-16 14:02 | ED.WEAKNESS ---
HPI - Weakness General Chief complaint: Weakness Stated complaint: falls/weakness History of Present Illness HPI Narrative: 60 yo male with h/o DM, htn depression presents to the ED for weakness. EMS was called to the house twice today after falls. He refused transport the first time. After the second time he was not able to support himself. He reports that he has been having problems with legs for months. He has not sought medical care for it up to this point. Glucose per EMS was over 300. He says that prior to today it has been under 200. No numbness, fever, nausea, vomiting. Related Data Home Medications Medication Instructions Recorded Confirmed insulin aspart U-100 100 unit/mL 1 sliding scale dose SUB-Q 10/30/19 09/03/20 subcutaneous solution USEASDIRECTD omega-3 fatty acids 1,000 mg 3,200 mg PO DAILY 05/28/20 09/03/20 capsule vitamin E (dl, acetate) 400 unit 400 mg PO DAILY 05/28/20 09/03/20 capsule metoprolol succinate 100 mg 100 mg PO DIRECTED tablet 06/11/20 09/04/20 tablet,extended release 24 hr divalproex [Depakote] 500 mg PO Q12H 09/03/20 09/03/20 warfarin 6 mg PO DIRECTED 09/03/20 09/04/20 warfarin 7.5 mg PO DIRECTED 09/03/20 09/04/20 Allergies Allergy/AdvReac Type Severity Reaction Status Date / Time No Known Allergies Allergy Verified 09/03/20 20:40 Review of Systems Review of Systems: All systems reviewed & are unremarkable except as noted in HPI and below Constitutional: Constitutional: Reports chills, Denies fever(s) and Reports weakness ENT: Denies sore throat Cardiovascular: Cardiovascular: Denies chest pain Respiratory: Respiratory: Denies dyspnea Gastrointestinal: Gastrointestinal: Denies abdominal pain, Denies nausea and Denies vomiting Genitourinary: Genitourinary: Denies hematuria, Denies dysuria, Reports urinary frequency and Reports urinary incontinence Musculoskeletal: Musculoskeletal: Denies back pain Neurologic: Denies headache(s), Denies focal weakness, Denies numbness and Reports weakness Endocrine: Endocrine: Reports fatigue PMFSH Past Medical History Medical History (Updated 10/16/20 @ 16:44 by Franc Tim MD) Anticoagulation management encounter Atrial fibrillation with RVR Depression Diabetes Essential hypertension Glaucoma Hyperlipidemia, unspecified Hypertension Obesity Obstructive sleep apnea Pacemaker Progressive neurological deficit SOB (shortness of breath) Surgical History Surgical History History of cholecystectomy History of knee replacement S/P TKR (total knee replacement) Family History Family History Father Diabetes mellitus Family history of coronary artery disease Mother Diabetes mellitus Family history of Alzheimer's disease Sibling Diabetes mellitus Social History Social History Smoking status: Never smoker Alcohol intake: former Substance use: never Substance use type: does not use Gender identity (if verbalized by the patient): Male Spiritual care concerns: No Agree to blood products: Yes Exam Const: General: alert and ill appearing Orientation/consciousness: patient oriented x3 HENMT: Mouth: Yes dry mucous membranes Eyes: Pupils: Equal, round and reactive pupils present Neck: Neck: normal visual inspection Resp: Effort & Inspection: normal respiratory effort Auscultation: clear to auscultation bilaterally Cardio: Rate: regular rate Rhythm: regular rhythm GI: GI Palp: Yes Soft to palpation and No Tenderness to palpation present (GI) Skin: General skin exam: pallor Rashes: no rashes Wounds: wounds noted (small laceration on plantar surface of left first toe) Neuro: General: patient oriented x3, moves all extremities and CN's II-XI intact bilaterally Speech: normal speech Other: Symmetrical 4/4 st
[2020-10-16] MEDS: SODIUM CHLORIDE 0.9% IV 1,000 ML 999 ML IV CONT ×2 (14:04→16:30)
[2020-10-16 14:25] LABS: Alveolar/Arterial O2 Gradient 23.9 mmHg; Base Excess ABG -0.1 mEq/l (+/-2.0); Fractional Inspired Oxygen 21 %; HCO3 ABG 23.1 mEq/l (22.0-26.0); Oxygen Content ABG 21.3 %vol (16.0-22.0); Oxygen Saturation ABG 96.9 % (95.0-100.0); Oxyhemoglobin 95.7 % THb (90.0-100.0); PCO2 ABG 33.9 mmHg (35.0-45.0); PO2 ABG 85.2 mmHg (80.0-100.0); PO2 FiO2 Ratio Arterial Blood 4.06 %; Total Hemoglobin 15.8 g/dL (12.0-18.0); pH ABG 7.451 (7.350-7.450)
[2020-10-16 14:26] LABS: Device ROOM AIR; Site Drawn LEFT BRACHIAL
[2020-10-16 14:35] LABS: Basophils Absolute Auto 0.1 K/mm3 (0.0-0.1); Basophils Percent Auto 0.3 % (0.2-1.2); Eosinophils Absolute Auto 0.2 K/mm3 (0-0.3); Hematocrit 47.1 % (42.0-52.0); Immature Granulocyte Absolute 0.17 K/mm3 (0.00-0.031); Lymphocytes Absolute Auto 1.66 K/mm3 (0.9-3.2); Lymphocytes Percent Auto 10.1 % (18.3-44.2); Mean Corpuscular Hemoglobin 28.4 pg (26-34); Mean Corpuscular Volume 83.5 fl (80-100); Monocytes Absolute Auto 1.1 K/mm3 (0.1-0.6); Monocytes Percent Auto 6.4 % (2.6-8.5); Neutrophils Absolute Auto 13.4 K/mm3 (1.3-6.7); Neutrophils Percent Auto 81.2 % (45.5-73.1); Platelet Count Result 216 k/mm3 (150-375); Red Blood Count 5.64 M/mm3 (4.6-6.20); Red Cell Distribution Width 14.7 % (11.5-14.5); White Blood Count 16.4 K/mm3 (4.5-10.0)
[2020-10-16 14:47] LABS: INR 1.9; Partial Thromboplastin Time 33.1 SECONDS (22.3-36.8); Prothrombin Time 22.8 Seconds (11.1-14.7)
[2020-10-16 14:50] LABS: Lactic Acid Reflex 4.7 mmol/L (0.7-2.1)
[2020-10-16 14:52] LABS: Alanine Aminotransferase 25 U/L (4-50); Albumin Level 4.3 g/dL (3.5-5.1); Alkaline Phosphatase 108 U/L (38-126); Anion Gap 15 mmol/L (8-16); Aspartate Amino Transferase 27 U/L (17-59); Bilirubin,Total 0.8 mg/dL (0.2-1.3); Blood Urea Nitrogen 35 mg/dL (9-20); Calcium 9.4 mg/dL (8.4-10.2); Carbon Dioxide 25 mmol/L (22-30); Chloride 92 mmol/L (98-107); Estimated CRCL calculation 68 ml/min; Estimated Glomerular Filt Rate 57; Glucose 310 mg/dL (75-110); Potassium 5.4 mmol/L (3.4-5.0); Sodium 132 mmol/L (137-145)
[2020-10-16 15:01] LABS: Glucose Point of Care 311 (65-105)
[2020-10-16 16:11] LABS: Beta-Hydroxybutyrate/Acetoacetate 0.34 mmol/L (0.02-0.27)
[2020-10-16 16:14] LABS: Add Urine Microscopic? YES; Appearance Urine Clear (Clear); Bilirubin Urine Negative (Negative); Blood Urine Negative (Negative); Color Urine Yellow (Yellow); Glucose Urine UA 3+ mg/dL (Negative); Ketones Urine Trace mg/dL (Negative); Leukocyte Esterase Ur Negative LEU/UL (Negative); Mucus Urine Rare /lpf; Nitrate Urine Negative (Negative); Protein Urine Negative (Negative); RBC Urine 0-2 /hpf (0-2); Specific Grav Ur 1.017 (1.001-1.035); Squamous Epithelial Cell Urine Rare /hpf (Few); Urobilinogen Urine Negative mg/dL (<2.0); WBC Urine 0-3 /hpf
[2020-10-16 16:22] VITALS: PULSE 70; O2SAT 98
[2020-10-16 16:58] VITALS: BP 149/90; PULSE 60; RESP 16; O2SAT 98
[2020-10-16 17:27] LABS: Reflex Lactic Acid Yes or No Add Lactic
--- NOTE | 2020-10-16 17:42 | ADMGEN ---
This patient, Chuck Moreno, was admitted to 2 Medical Room 251-. Patient/family oriented to hospital policies and general routines including ID bracelet, bed and alarms, visiting hours, pain management, procedures, bathroom and other care routines, personal items, smoking policy, room service/diet, and visiting hours. Information on how to activate the Rapid Response Team has been discussed. Patient/Family are encouraged to report perceived risks to care and to ask questions if they do not understand what they are told or what they should do.
[2020-10-16 18:00] VITALS: BP 130/66; PULSE 60; RESP 17; TEMP 36.9; O2SAT 100; BMI 38.9
[2020-10-16 18:03] LABS: Lactic Acid 2.3 mmol/L (0.7-2.1)
[2020-10-16] MEDS: LACTATED RINGERS 1,000 ML 125 ML IV CONT (18:11)
[2020-10-16 19:17] LABS: Glucose Point of Care 235 (65-105)
[2020-10-16 21:50] LABS: Glucose Point of Care 244 (65-105)
[2020-10-16 22:00] VITALS: BP 139/62; PULSE 60; RESP 18; TEMP 36.6; O2SAT 98
--- NOTE | 2020-10-16 23:32 | PM.IMHP ---
H&P: HPI History of Present Illness Date/Time: 10/16/20 23:32 Chief Complaint: Weakness Narrative: Chuck Moreno is a 60 year old male who was admitted here on September 04 for some gait instability and frequent falls and hyperglycemia. At that time he had generalized weakness in both legs and had no problems with any speech or swallowing difficulties. The patient is chronically on anticoagulation due to atrial fibrillation. Patient was noted to have a hemoglobin A1c of 11 May of this year. He has poorly controlled diabetes but denies any neuropathy. He tells me that his blood sugars are typically in the 200s but today there in the 300s. In August A1c was listed as 8. 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 Head that shows no acute intracranial abnormality and chronic age-related findings. Chest x-ray read as left-sided pacemaker device minimal infiltrate or atelectasis at right lung bases mild elevation right diaphragm. The patient told me that he recently had his pacemaker evaluated and that he is not having any dizziness or syncopal episodes. He denies having any hand tremors or any history Parkinson's. INR 1.9 at this time white count 16.4. Potassium 5.4 sodium 132. Blood sugars 310 and came down to 244. Last A1c was noted to be 8.7. Lactic acid is 4.7 and then 2.3. Patient has 3+ glucose in his urine. Anion gap was within normal limits. Patient is being admitted for observation status date of service 10/16/2020 Review of Systems Review of Systems: All systems reviewed & are unremarkable except as noted in HPI and below Constitutional: Constitutional: Reports as per HPI and Reports no additional constitutional complaints Eyes: Eyes: Reports as per HPI and Reports no additional eye complaints ENT: Reports system reviewed and no additional complaints, except as documented and Reports Normal hearing present Cardiovascular: Cardiovascular: Reports no additional cardiovascular complaints Respiratory: Respiratory: Reports no additional respiratory complaints and Reports no additional respiratory complaints Gastrointestinal: Gastrointestinal: Reports as per HPI and Reports no additional gastrointestinal complaints Musculoskeletal: Musculoskeletal: Reports no additional musculoskeletal complaints Integumentary/Breasts: Skin/Breast: Reports system reviewed and no additional complaints, except as docu and Reports as per HPI Neurologic: Reports system reviewed and no additional complaints, except as documented, Reports as per HPI and Reports Normal hearing present Psychiatric: Psychiatric: Reports no additional psychiatric complaints and Reports as per HPI Endocrine: Endocrine: Reports no additional endocrine complaints Hematologic/Lymphatic: Hematologic/Lymphatic: Reports no additional hematologic/lymphatic complaints Allergic/Immunologic: Allergic/Immunologic: Reports no additional allergic/immunologic complaints [facility] Past Medical History Medical History (Updated 10/16/20 @ 23:50 by Jazmine Boswell NP) Anticoagulation management encounter Atrial fibrillation with RVR Chronic a-fib Depression Diabetes Essential hypertension Glaucoma Hyperlipidemia, unspecified Hypertension Obesity Obstructive sleep apnea Pacemaker Progressive neurological deficit SOB (shortness of breath) Surgical History Surgical History History of cholecystectomy History of knee replacement S/P TKR (total knee replacement) Family History Family History Father Diabetes mellitus Family history of coronary artery disease Mother Diabetes mellitus Family history of Alzheimer's disease Sibl
[2020-10-17 00:20] LABS: INR 2.2; Prothrombin Time 24.7 Seconds (11.1-14.7)
[2020-10-17] MEDS: WARFARIN (*PBKC) 3 MG TABLET 6 MG PO (01:00)
[2020-10-17] MEDS: LACTATED RINGERS 1,000 ML 125 ML IV CONT (02:23)
[2020-10-17 05:28] LABS: Basophils Percent Auto 0.3 % (0.2-1.2); Hematocrit 43.1 % (42.0-52.0); Hemoglobin 14.3 g/dL (14.0-18.0); Immature Granulocyte Absolute 0.12 K/mm3 (0.00-0.031); Immature Granulocyte Percent A 0.9 % (0-0.5); Lymphocytes Absolute Auto 1.86 K/mm3 (0.9-3.2); Lymphocytes Percent Auto 13.3 % (18.3-44.2); Mean Corpuscular HGB Conc 33.2 g/dl (32-36); Mean Corpuscular Hemoglobin 28.2 pg (26-34); Mean Platelet Volume 11.1 fl (7.4-10.4); Monocytes Percent Auto 7.2 % (2.6-8.5); Neutrophils Percent Auto 78.3 % (45.5-73.1); Platelet Count Result 171 k/mm3 (150-375); Red Blood Count 5.07 M/mm3 (4.6-6.20); Red Cell Distribution Width 14.9 % (11.5-14.5)
[2020-10-17 05:51] LABS: Alanine Aminotransferase 19 U/L (4-50); Albumin Level 3.7 g/dL (3.5-5.1); Alkaline Phosphatase 93 U/L (38-126); Anion Gap 6 mmol/L (8-16); Aspartate Amino Transferase 21 U/L (17-59); Bilirubin,Total 0.8 mg/dL (0.2-1.3); Blood Urea Nitrogen 24 mg/dL (9-20); Calcium 8.8 mg/dL (8.4-10.2); Carbon Dioxide 30 mmol/L (22-30); Chloride 95 mmol/L (98-107); Estimated CRCL calculation 99 ml/min; Estimated Glomerular Filt Rate > 60; Glucose 246 mg/dL (75-110); Magnesium 1.5 mg/dL (1.6-2.3); Phosphorus 2.7 mg/dL (2.5-4.5); Potassium 4.5 mmol/L (3.4-5.0); Sodium 131 mmol/L (137-145)
[2020-10-17 06:00] VITALS: BP 143/57; PULSE 64; RESP 18; TEMP 36.5; O2SAT 98
[2020-10-17 06:05] LABS: Lactic Acid Reflex 2.2 mmol/L (0.7-2.1)
[2020-10-17 06:32] LABS: Valproic Acid 13.7 ug/mL (50-120)
[2020-10-17 07:56] LABS: Glucose Point of Care 254 (65-105)
[2020-10-17] MEDS: MAGNESIUM SULF 1 GM/D5W 100 ML 1 GM/100 ML BAG IVPB (08:13)
[2020-10-17] MEDS: FUROSEMIDE 80 MG TABLET PO (08:15)
[2020-10-17] MEDS: DIVALPROEX SODIUM 250 MG TABEC 500 MG PO ×2 (08:15→20:28)
[2020-10-17] MEDS: LORATADINE 10 MG TABLET PO (08:15)
[2020-10-17] MEDS: buPROPion HCL XL (24 HR) 150 MG TABCR 300 MG PO (08:16)
[2020-10-17] MEDS: ESCITALOPRAM OXALATE 10 MG TABLET 20 MG PO (08:16)
[2020-10-17] MEDS: PANTOPRAZOLE 40 MG TABLET PO ×2 (08:16→16:23)
[2020-10-17] MEDS: ATORVASTATIN 40 MG TABLET PO (08:16)
[2020-10-17 08:17] VITALS: PULSE 62
[2020-10-17] MEDS: METOPROLOL SUCCINATE EXT REL 100 MG TABCR 200 MG BY MOUTH (08:17)
[2020-10-17] MEDS: INSULIN HUMAN ISOPHAN/REGULAR 70/30 (*BKC) 100 UNITS/ML 50 UNITS SUB-Q (08:21)
[2020-10-17] MEDS: INSULIN ASPART (*BKC) 100 UNITS/ML SUB-Q ×3 (08:22→16:33)
[2020-10-17 08:25] LABS: Reflex Lactic Acid Yes or No Add Lactic
[2020-10-17 08:56] LABS: Lactic Acid 3.2 mmol/L (0.7-2.1)
--- NOTE | 2020-10-17 09:44 | PM.IMPN ---
Progress Note: A&P Assessment and Plan (1) Bilateral leg weakness: Code(s): R29.898 - Other symptoms and signs involving the musculoskeletal system Status: Acute Assessment and Plan: With frequent falls at home and decreased ADLs at home. Patient is a high fall risk and is on chronic a/c for his a.fib. This will need to be readdressed with his PCP/dba developer if he continues to have falls. PT/OT evaluation CC consulted for further rec on disposition Muscle relaxer on hold Monitor closely (2) Hyperglycemia due to type 2 diabetes mellitus: Code(s): E11.65 - Type 2 diabetes mellitus with hyperglycemia Status: Acute Assessment and Plan: A1c was 8.7 last month. BGL 200s Metformin held Continue home 70/30 humulin Accuchecks ACHS, hypoglycemia protocol, correctional insulin, diabetic diet (3) Lactic acidosis: Code(s): E87.2 - Acidosis Status: Acute Assessment and Plan: Could be related to dehydration or elevated blood sugar. 2.2 at 0500 this morning then 3.2 at 0830. Continues to have IV fluids. No evidence of infection at this moment. Will give 500 mL bolus Continue IV fluids Recheck this afternoon Consider repeat CXR and UA and BCx and initiation of antibiotics if not correcting (4) Falls frequently: Code(s): R29.6 - Repeated falls Status: Acute Assessment and Plan: Please see above (5) Obstructive sleep apnea: Code(s): G47.33 - Obstructive sleep apnea (adult) (pediatric) Status: Acute Assessment and Plan: Continue with CPAP (6) Mixed hyperlipidemia: Code(s): E78.2 - Mixed hyperlipidemia Status: Acute Assessment and Plan: Continue with [place] 3 and atorvastatin (7) Anxiety and depression: Code(s): F41.9 - Anxiety disorder, unspecified; F32.9 - Major depressive disorder, single episode, unspecified Status: Acute Assessment and Plan: No acute issues Continue home medications (8) Chronic a-fib: Code(s): I48.20 - Chronic atrial fibrillation, unspecified Status: Chronic Assessment and Plan: Rate controlled. On warfarin chronically. Appeared to be subtherapeutic last month. INR 2.2 today Continue warfarin Continue with metoprolol Will do Venous doppler as well to r/o DVT as well Daily INR while inpatient Subjective Date/time seen: 10/17/20 09:44 Interval history: Patient is a 60 yo M with history of chronic afib (on warfarin terminal operations manager, rate controlled, DMII, HTN, HLD, SABRINA, and progressive neuropathy who is seen in follow up for frequent falls. Patient states his only complaint is his progressive weakness and that he thinks he needs more help at home to help prevent falls. His is at home with him, but leaves for work at 7 am every morning. He has no other complaints. Denies f/c/s, headaches, dizziness, lightheadedness, cp/palpitations, sob/cough, n/v/d/c, abd pain, dysuria, hematuria, cloudy urine Review of Systems Review of Systems: All systems reviewed & are unremarkable except as noted in HPI and below Exam Narrative: Exam Narrative: General: Patient transitioned to bed by nursing and therapy staff; rests supine in bed in no acute distress. HEENT: Normocephalic, EOMI, oral mucosa moist. Cardiovascular: Normal rate, irregularly irregular. No notable murmur, rub, or gallop. Respiratory: Lungs clear to auscultation all larsen. Non-labored breathing. Mildly tachypneic after transitioning to bed Abdomen: Soft, obese, non-tender, non-distended, bowel sounds present. Extremities: Peripheral pulses intact. No edema. Left calf TTP Neuro: No focal lesley
[2020-10-17] MEDS: SODIUM CHLORIDE 0.9% IV 250 ML 100 ML IV CONT (10:36)
[2020-10-17 12:32] LABS: Glucose Point of Care 259 (65-105)
[2020-10-17 12:44] LABS: Lactic Acid Reflex 4.1 mmol/L (0.7-2.1)
[2020-10-17] MEDS: LACTATED RINGERS 1,000 ML 999 ML IV CONT (13:41)
[2020-10-17 14:00] VITALS: BP 132/56; PULSE 60; RESP 20; TEMP 36.3; O2SAT 98
[2020-10-17] MEDS: LACTATED RINGERS 1,000 ML 100 ML IV CONT (16:21)
[2020-10-17] MEDS: WARFARIN (*PBKC) 7.5 MG TABLET PO (16:23)
[2020-10-17 16:29] LABS: Glucose Point of Care 254 (65-105)
[2020-10-17] MEDS: INSULIN HUMAN ISOPHAN/REGULAR 70/30 (*BKC) 100 UNITS/ML 30 UNITS SUB-Q (16:34)
[2020-10-17 17:57] LABS: Lactic Acid Reflex 3.7 mmol/L (0.7-2.1)
[2020-10-17 20:28] VITALS: PULSE 60
[2020-10-17] MEDS: OMEGA 3 POLYUNSAT FATTY ACIDS 1 GM CAP 2 GM PO (20:28)
[2020-10-17] MEDS: METOPROLOL SUCCINATE EXT REL 100 MG TABCR BY MOUTH (20:28)
[2020-10-17] MEDS: VITAMIN E 100 UNIT CAPSULE 200 UNIT PO (20:29)
[2020-10-17 20:52] LABS: Glucose Point of Care 211 (65-105)
[2020-10-17 21:49] VITALS: BP 135/61; PULSE 61; RESP 18; TEMP 36.1; O2SAT 97
[2020-10-18] VITALS (7 sets, daily range): BP systolic 106–139; BP diastolic 55–70; PULSE 60–65; RESP 16–18; TEMP 35.8–36.5; O2SAT 98–99
[2020-10-18] MEDS: LACTATED RINGERS 1,000 ML 100 ML IV CONT ×2 (02:25→12:01)
[2020-10-18 06:00] LABS: Basophils Percent Auto 0.4 % (0.2-1.2); Eosinophils Absolute Auto 0.1 K/mm3 (0-0.3); Eosinophils Percent Auto 0.8 % (0-4.4); Hematocrit 37.7 % (42.0-52.0); Hemoglobin 12.6 g/dL (14.0-18.0); Immature Granulocyte Percent A 0.9 % (0-0.5); Immature Platelet Fraction Pct 6.3 % (0.9-11.2); Lymphocytes Absolute Auto 2.91 K/mm3 (0.9-3.2); Lymphocytes Percent Auto 26.8 % (18.3-44.2); Mean Corpuscular HGB Conc 33.4 g/dl (32-36); Mean Corpuscular Hemoglobin 27.8 pg (26-34); Mean Corpuscular Volume 83.2 fl (80-100); Mean Platelet Volume 11.5 fl (7.4-10.4); Monocytes Percent Auto 9.2 % (2.6-8.5); Neutrophils Absolute Auto 6.7 K/mm3 (1.3-6.7); Neutrophils Percent Auto 61.9 % (45.5-73.1); Platelet Count Result 136 k/mm3 (150-375); Red Blood Count 4.53 M/mm3 (4.6-6.20); Red Cell Distribution Width 15.1 % (11.5-14.5); White Blood Count 10.9 K/mm3 (4.5-10.0)
[2020-10-18 06:33] LABS: Alanine Aminotransferase 15 U/L (4-50); Albumin Level 3.1 g/dL (3.5-5.1); Alkaline Phosphatase 81 U/L (38-126); Anion Gap 2 mmol/L (8-16); Aspartate Amino Transferase 18 U/L (17-59); Bilirubin,Total 0.4 mg/dL (0.2-1.3); Blood Urea Nitrogen 14 mg/dL (9-20); Calcium 8.5 mg/dL (8.4-10.2); Carbon Dioxide 36 mmol/L (22-30); Chloride 98 mmol/L (98-107); Estimated CRCL calculation 99 ml/min; Estimated Glomerular Filt Rate > 60; Glucose 110 mg/dL (75-110); Magnesium 1.7 mg/dL (1.6-2.3); Potassium 3.4 mmol/L (3.4-5.0); Sodium 136 mmol/L (137-145)
[2020-10-18] MEDS: ATORVASTATIN 40 MG TABLET PO (08:21)
[2020-10-18] MEDS: buPROPion HCL XL (24 HR) 150 MG TABCR 300 MG PO (08:21)
[2020-10-18] MEDS: PANTOPRAZOLE 40 MG TABLET PO ×2 (08:21→16:39)
[2020-10-18] MEDS: DIVALPROEX SODIUM 250 MG TABEC 500 MG PO ×2 (08:21→20:55)
[2020-10-18] MEDS: ESCITALOPRAM OXALATE 10 MG TABLET 20 MG PO (08:22)
[2020-10-18] MEDS: POTASSIUM CHLORIDE 20 MEQ PACKET (FOR LIQUID) 40 MEQ PO (08:22)
[2020-10-18] MEDS: LORATADINE 10 MG TABLET PO (08:22)
[2020-10-18 08:51] LABS: INR 1.9; Prothrombin Time 22.6 Seconds (11.1-14.7)
[2020-10-18 09:08] LABS: Glucose Point of Care 122 (65-105)
[2020-10-18] MEDS: METOPROLOL SUCCINATE EXT REL 100 MG TABCR PO (10:01)
[2020-10-18] MEDS: INSULIN HUMAN ISOPHAN/REGULAR 70/30 (*BKC) 100 UNITS/ML 25 UNITS SUB-Q (10:01)
--- NOTE | 2020-10-18 10:06 | PM.IMPN ---
Progress Note: A&P Assessment and Plan (1) Cellulitis of left lower leg: Code(s): L03.116 - Cellulitis of left lower limb Status: Acute Assessment and Plan: New area of erythema/warmth concerning for cellulitis which was not appreciated on exam yesterday and patient first noticed yesterday. Never been diagnoses with ceullitis in past. Patient diabetic. Lactic acidosis noted, but unsure if this is related as patient does not meet criteria for SIRS/sepsis. In any regard, will obtain BCx prior to antibiotic administration. Mild leukocytosis today. VSS, afebrile. Not septic appearing. Venous Doppler LE b/l - negative Obtain BCx x 2 stat Initiate Keflex 500 mg Q6hr and Doxycycline 100 mg Q12hr PO after blood cultures drawn as infection appears mild/mod Continue IV fluids for now as well Monitor overnight Likely discharge in 1-2 days pending BCx results and clinical improvement (2) Bilateral leg weakness: Code(s): R29.898 - Other symptoms and signs involving the musculoskeletal system Status: Acute Assessment and Plan: With frequent falls at home and decreased ADLs at home. Patient is a high fall risk and is on chronic a/c for his a.fib. This will need to be readdressed with his PCP/belt sander stone if he continues to have falls. PT/OT evaluation Patient to discharge to SNF once medically stable Muscle relaxer on hold Monitor closely (3) Hyperglycemia due to type 2 diabetes mellitus: Code(s): E11.65 - Type 2 diabetes mellitus with hyperglycemia Status: Acute Assessment and Plan: A1c was 8.7 last month. BGL 100s this morning Metformin held Continue home 70/30 humulin; reduced dose this morning given lower sugar Accuchecks ACHS, hypoglycemia protocol, correctional insulin, diabetic diet (4) Falls frequently: Code(s): R29.6 - Repeated falls Status: Acute Assessment and Plan: Please see above (5) Obstructive sleep apnea: Code(s): G47.33 - Obstructive sleep apnea (adult) (pediatric) Status: Acute Assessment and Plan: Continue with CPAP (6) Mixed hyperlipidemia: Code(s): E78.2 - Mixed hyperlipidemia Status: Acute Assessment and Plan: Continue with [place] 3 and atorvastatin (7) Anxiety and depression: Code(s): F41.9 - Anxiety disorder, unspecified; F32.9 - Major depressive disorder, single episode, unspecified Status: Acute Assessment and Plan: No acute issues Continue home medications (8) Chronic a-fib: Code(s): I48.20 - Chronic atrial fibrillation, unspecified Status: Chronic Assessment and Plan: Rate controlled. On warfarin chronically. Appeared to be subtherapeutic last month. 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 Patient states he is still weak today. He is willing to go to SNF for further rehab. He states he noticed some pain and redness in his left lower leg yesterday; also has associated warmth. Never had cellulitis in past. He has no other complaints. Denies f/c/s, headaches, dizziness, lightheadedness, cp/palpitations, sob/cough, n/v/d/c, abd pain, dysuria, hematuria, cloudy urine Review of Systems Review of Systems: All systems reviewed & are unremarkable except as noted in HPI and below Exam Narrative: Exam Narrative: General: Patient Lying supine in bed at time of visit.
[2020-10-18] MEDS: CEPHALEXIN 500 MG CAPSULE PO ×3 (12:01→23:58)
[2020-10-18] MEDS: DOXYCYCLINE HYCLATE 100 MG TABLET PO ×2 (12:01→20:55)
[2020-10-18 12:26] LABS: Glucose Point of Care 236 (65-105)
[2020-10-18] MEDS: INSULIN ASPART (*BKC) 100 UNITS/ML SUB-Q ×2 (12:38→16:40)
[2020-10-18 16:36] LABS: Glucose Point of Care 241 (65-105)
[2020-10-18] MEDS: WARFARIN (*PBKC) 3 MG TABLET 6 MG PO (16:38)
[2020-10-18] MEDS: INSULIN HUMAN ISOPHAN/REGULAR 70/30 (*BKC) 100 UNITS/ML 30 UNITS SUB-Q (16:41)
[2020-10-18 18:58] LABS: SARS-CoV-2 RNA PCR Negative
[2020-10-18] MEDS: VITAMIN E 100 UNIT CAPSULE 200 UNIT PO (20:55)
[2020-10-18] MEDS: OMEGA 3 POLYUNSAT FATTY ACIDS 1 GM CAP 2 GM PO (20:55)
[2020-10-18] MEDS: METOPROLOL SUCCINATE EXT REL 100 MG TABCR BY MOUTH (20:56)
[2020-10-18 21:26] LABS: Glucose Point of Care 292 (65-105)
[2020-10-19 00:25] VITALS: RESP 17
[2020-10-19 06:00] VITALS: BP 130/71; PULSE 63; RESP 20; TEMP 36; O2SAT 98
[2020-10-19] MEDS: CEPHALEXIN 500 MG CAPSULE PO ×4 (06:05→23:58)
[2020-10-19 06:07] LABS: Basophils Absolute Auto 0.1 K/mm3 (0.0-0.1); Basophils Percent Auto 0.6 % (0.2-1.2); Eosinophils Absolute Auto 0.2 K/mm3 (0-0.3); Eosinophils Percent Auto 2.5 % (0-4.4); Hematocrit 39.1 % (42.0-52.0); Hemoglobin 12.6 g/dL (14.0-18.0); Immature Granulocyte Absolute 0.12 K/mm3 (0.00-0.031); Immature Granulocyte Percent A 1.5 % (0-0.5); Lymphocytes Absolute Auto 2.47 K/mm3 (0.9-3.2); Lymphocytes Percent Auto 31.4 % (18.3-44.2); Mean Corpuscular HGB Conc 32.2 g/dl (32-36); Mean Corpuscular Hemoglobin 27.8 pg (26-34); Mean Corpuscular Volume 86.1 fl (80-100); Mean Platelet Volume 11.2 fl (7.4-10.4); Monocytes Absolute Auto 0.7 K/mm3 (0.1-0.6); Monocytes Percent Auto 8.7 % (2.6-8.5); Neutrophils Absolute Auto 4.3 K/mm3 (1.3-6.7); Neutrophils Percent Auto 55.3 % (45.5-73.1); Platelet Count Result 141 k/mm3 (150-375); Red Blood Count 4.54 M/mm3 (4.6-6.20); Red Cell Distribution Width 15.3 % (11.5-14.5); White Blood Count 7.9 K/mm3 (4.5-10.0)
[2020-10-19 06:14] LABS: INR 1.7
[2020-10-19 06:34] LABS: Anion Gap 5 mmol/L (8-16); Blood Urea Nitrogen 14 mg/dL (9-20); Calcium 8.7 mg/dL (8.4-10.2); Carbon Dioxide 31 mmol/L (22-30); Chloride 101 mmol/L (98-107); Estimated CRCL calculation 110 ml/min; Estimated Glomerular Filt Rate > 60; Glucose 167 mg/dL (75-110); Magnesium 1.7 mg/dL (1.6-2.3); Potassium 3.7 mmol/L (3.4-5.0); Sodium 137 mmol/L (137-145)
[2020-10-19 07:26] LABS: Glucose Point of Care 160 (65-105)
[2020-10-19] MEDS: INSULIN HUMAN ISOPHAN/REGULAR 70/30 (*BKC) 100 UNITS/ML 50 UNITS SUB-Q (07:36)
[2020-10-19] MEDS: DIVALPROEX SODIUM 250 MG TABEC 500 MG PO ×2 (08:18→21:43)
[2020-10-19 08:19] VITALS: PULSE 62
[2020-10-19] MEDS: METOPROLOL SUCCINATE EXT REL 100 MG TABCR 200 MG BY MOUTH (08:19)
[2020-10-19] MEDS: PANTOPRAZOLE 40 MG TABLET PO ×2 (08:19→17:13)
[2020-10-19] MEDS: DOXYCYCLINE HYCLATE 100 MG TABLET PO ×2 (08:19→21:43)
[2020-10-19] MEDS: LORATADINE 10 MG TABLET PO (08:19)
[2020-10-19] MEDS: ESCITALOPRAM OXALATE 10 MG TABLET 20 MG PO (08:19)
[2020-10-19] MEDS: FUROSEMIDE 80 MG TABLET PO (08:19)
[2020-10-19] MEDS: ATORVASTATIN 40 MG TABLET PO (08:19)
[2020-10-19] MEDS: buPROPion HCL XL (24 HR) 150 MG TABCR 300 MG PO (08:19)
[2020-10-19 12:13] LABS: Glucose Point of Care 188 (65-105)
--- NOTE | 2020-10-19 12:57 | PM.IMPN ---
Progress Note: A&P Assessment and Plan (1) Cellulitis of left lower leg: Code(s): L03.116 - Cellulitis of left lower limb Status: Acute Assessment and Plan: Area of erythema/warmth concerning for cellulitis; similar exam compared to yesterday. Never been diagnosed with cellulitis in past. Patient diabetic. Lactic acidosis noted, but unsure if this is related as patient does not meet criteria for SIRS/sepsis. In any regard, BCx obtained prior to antibiotic initiating on 10/18; these are showing NGTD x 2. Leukocytosis resolved. VSS, afebrile. Not septic appearing, clinically. Negative b/l LE venous Doppler. Continue Keflex 500 mg Q6hr and Doxycycline 100 mg Q12hr PO; likely continue through 10/25 Monitor overnight Likely discharge in 1-2 days pending BCx results and clinical improvement. Also waiting on insurance auth for SNF placement. (2) Bilateral leg weakness: Code(s): R29.898 - Other symptoms and signs involving the musculoskeletal system Status: Acute Assessment and Plan: With frequent falls at home and decreased ADLs at home. Patient is a high fall risk and is on chronic a/c for his a.fib. This will need to be readdressed with his PCP/handle finisher if he continues to have falls. PT/OT following Patient to discharge to SNF if insurance auth approves. Home with PT/OT if not Muscle relaxer on hold Monitor closely (3) Hyperglycemia due to type 2 diabetes mellitus: Code(s): E11.65 - Type 2 diabetes mellitus with hyperglycemia Status: Acute Assessment and Plan: A1c was 8.7 last month. BGL 100s this morning Metformin held Continue home 70/30 humulin Accuchecks ACHS, hypoglycemia protocol, correctional insulin, diabetic diet (4) Falls frequently: Code(s): R29.6 - Repeated falls Status: Acute Assessment and Plan: Please see above (5) Obstructive sleep apnea: Code(s): G47.33 - Obstructive sleep apnea (adult) (pediatric) Status: Acute Assessment and Plan: Continue with CPAP (6) Mixed hyperlipidemia: Code(s): E78.2 - Mixed hyperlipidemia Status: Acute Assessment and Plan: Continue with [place] 3 and atorvastatin (7) Anxiety and depression: Code(s): F41.9 - Anxiety disorder, unspecified; F32.9 - Major depressive disorder, single episode, unspecified Status: Acute Assessment and Plan: No acute issues Continue home medications (8) Chronic a-fib: Code(s): I48.20 - Chronic atrial fibrillation, unspecified Status: Chronic Assessment and Plan: Rate controlled. On warfarin chronically. Appeared to be subtherapeutic last month. 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 Patient states he is still weak today, but feeling better and stronger. He thinks his left leg is about the same. States his pain feels like a yeny horse . He has no other complaints. Denies f/c/s, headaches, dizziness, lightheadedness, cp/palpitations, sob/cough, n/v/d/c, abd pain, dysuria, hematuria, cloudy urine Review of Systems Review of Systems: All systems reviewed & are unremarkable except as noted in HPI and below Exam Narrative: Exam Narrative: General: Patient Lying supine in bed at time of visit. NAD HEENT: Normocephalic, EOMI, oral mucosa moist. Cardiovascular: Normal rate, irregularly irregular. No no
[2020-10-19 13:54] VITALS: BP 132/70; PULSE 62; RESP 18; TEMP 36.3; O2SAT 97
[2020-10-19 16:56] LABS: Glucose Point of Care 206 (65-105)
[2020-10-19] MEDS: INSULIN ASPART (*BKC) 100 UNITS/ML SUB-Q (17:10)
[2020-10-19] MEDS: INSULIN HUMAN ISOPHAN/REGULAR 70/30 (*BKC) 100 UNITS/ML 30 UNITS SUB-Q (17:11)
[2020-10-19] MEDS: WARFARIN (*PBKC) 3 MG TABLET 6 MG PO (17:13)
[2020-10-19 20:45] VITALS: BP 152/78; PULSE 62; RESP 18; TEMP 36; O2SAT 100
[2020-10-19 21:44] VITALS: PULSE 72
[2020-10-19] MEDS: VITAMIN E 100 UNIT CAPSULE 200 UNIT PO (21:44)
[2020-10-19] MEDS: METOPROLOL SUCCINATE EXT REL 100 MG TABCR BY MOUTH (21:44)
[2020-10-19] MEDS: OMEGA 3 POLYUNSAT FATTY ACIDS 1 GM CAP 2 GM PO (21:44)
[2020-10-19 22:57] LABS: Glucose Point of Care 273 (65-105)
[2020-10-20 00:16] VITALS: RESP 21
[2020-10-20 05:39] LABS: Hematocrit 39.1 % (42.0-52.0); Hemoglobin 12.7 g/dL (14.0-18.0); Mean Corpuscular HGB Conc 32.5 g/dl (32-36); Mean Corpuscular Hemoglobin 28.2 pg (26-34); Mean Corpuscular Volume 86.7 fl (80-100); Mean Platelet Volume 11.4 fl (7.4-10.4); Platelet Count Result 164 k/mm3 (150-375); Red Blood Count 4.51 M/mm3 (4.6-6.20); White Blood Count 7.4 K/mm3 (4.5-10.0)
[2020-10-20 05:51] LABS: Anion Gap 4 mmol/L (8-16); Blood Urea Nitrogen 16 mg/dL (9-20); Calcium 8.8 mg/dL (8.4-10.2); Carbon Dioxide 36 mmol/L (22-30); Chloride 98 mmol/L (98-107); Estimated CRCL calculation 99 ml/min; Estimated Glomerular Filt Rate > 60; Glucose 157 mg/dL (75-110); INR 1.4; Magnesium 1.6 mg/dL (1.6-2.3); Potassium 3.9 mmol/L (3.4-5.0); Prothrombin Time 17.6 Seconds (11.1-14.7); Sodium 138 mmol/L (137-145)
[2020-10-20 06:00] VITALS: BP 154/72; PULSE 68; RESP 18; TEMP 36.2; O2SAT 98
[2020-10-20] MEDS: CEPHALEXIN 500 MG CAPSULE PO ×3 (06:29→17:17)
[2020-10-20] MEDS: INSULIN HUMAN ISOPHAN/REGULAR 70/30 (*BKC) 100 UNITS/ML 50 UNITS SUB-Q (08:18)
[2020-10-20] MEDS: DIVALPROEX SODIUM 250 MG TABEC 500 MG PO ×2 (08:21→20:47)
[2020-10-20] MEDS: ESCITALOPRAM OXALATE 10 MG TABLET 20 MG PO (08:21)
[2020-10-20] MEDS: FUROSEMIDE 80 MG TABLET PO (08:21)
[2020-10-20 08:22] VITALS: PULSE 86
[2020-10-20] MEDS: PANTOPRAZOLE 40 MG TABLET PO ×2 (08:22→17:16)
[2020-10-20] MEDS: LORATADINE 10 MG TABLET PO (08:22)
[2020-10-20] MEDS: ATORVASTATIN 40 MG TABLET PO (08:22)
[2020-10-20] MEDS: buPROPion HCL XL (24 HR) 150 MG TABCR 300 MG PO (08:22)
[2020-10-20] MEDS: METOPROLOL SUCCINATE EXT REL 100 MG TABCR 200 MG BY MOUTH (08:22)
[2020-10-20] MEDS: DOXYCYCLINE HYCLATE 100 MG TABLET PO ×2 (08:22→20:47)
--- NOTE | 2020-10-20 09:03 | PM.IMPN ---
Progress Note: A&P Assessment and Plan (1) Cellulitis of left lower leg: Code(s): L03.116 - Cellulitis of left lower limb Status: Acute Assessment and Plan: Area of erythema/warmth concerning for cellulitis; improvement compared to yesterday. Never been diagnosed with cellulitis in the past. Patient diabetic. Lactic acidosis noted, but unsure if this is related as patient does not meet criteria for SIRS/sepsis and did not and continues to not appear septic clinically. In any regard, BCx obtained prior to antibiotic initiating on 10/18; these are showing NGTD x 2. Leukocytosis resolved. VSS, afebrile. Not septic appearing, clinically. Negative b/l LE venous Doppler. Continue Keflex 500 mg Q6hr and Doxycycline 100 mg Q12hr PO; likely continue through 10/25 Monitor overnight Likely discharge in 1-2 days pending insurance auth for SNF placement. Will discharge to home with HH if no auth (2) Bilateral leg weakness: Code(s): R29.898 - Other symptoms and signs involving the musculoskeletal system Status: Acute Assessment and Plan: With frequent falls at home and decreased ADLs at home. Patient is a high fall risk and is on chronic a/c for his a.fib. 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 PT/OT following Patient to discharge to SNF if insurance auth approves. Home with HH PT/OT if not Muscle relaxer on hold Monitor closely (3) Hyperglycemia due to type 2 diabetes mellitus: Code(s): E11.65 - Type 2 diabetes mellitus with hyperglycemia Status: Acute Assessment and Plan: A1c was 8.7 last month. BGL 100s this morning Metformin held Continue home 70/30 humulin Accuchecks ACHS, hypoglycemia protocol, correctional insulin, diabetic diet (4) Falls frequently: Code(s): R29.6 - Repeated falls Status: Acute Assessment and Plan: Please see above (5) Obstructive sleep apnea: Code(s): G47.33 - Obstructive sleep apnea (adult) (pediatric) Status: Acute Assessment and Plan: Continue with CPAP (6) Mixed hyperlipidemia: Code(s): E78.2 - Mixed hyperlipidemia Status: Acute Assessment and Plan: Continue with [place] 3 and atorvastatin (7) Anxiety and depression: Code(s): F41.9 - Anxiety disorder, unspecified; F32.9 - Major depressive disorder, single episode, unspecified Status: Acute Assessment and Plan: No acute issues Continue home medications (8) Chronic a-fib: Code(s): I48.20 - Chronic atrial fibrillation, unspecified Status: Chronic Assessment and Plan: Rate controlled. On warfarin chronically. Appeared to be subtherapeutic last month. INR 1.4 today Continue warfarin; will increase to 7.5 daily today Continue with metoprolol Daily INR while inpatient; repeat INR on 10/27 for monitoring Subjective Date/time seen: 10/20/20 09:03 Interval history: Patient is a 60 yo M with history of chronic afib (on warfarin care home, rate controlled), DMII, HTN, HLD, SABRINA, and progressive neuropathy who is seen in follow up for frequent falls. Patient states he feels better today. He thinks his let lower leg redness and pain have improved. No other complaints at the moment. He has no other complaints. Denies f/c/s, headaches, dizziness, lightheadedness, cp/palpitations, sob/cough, n/v/d/c, abd pain, dysuria, hematuria, cloudy urine Review of Systems Review of Systems: All systems reviewed & are unremarkable except as noted in HPI and below Exam Narrative: Exam Narrative: General: Patient lying supine in bed at time of visit. NAD HEENT: Nor
[2020-10-20 11:42] LABS: Glucose Point of Care 221 (65-105)
[2020-10-20 11:42] LABS: Glucose Point of Care 146 (65-105)
[2020-10-20] MEDS: INSULIN ASPART (*BKC) 100 UNITS/ML SUB-Q (12:11)
[2020-10-20 13:36] VITALS: BP 138/56; PULSE 63; RESP 18; TEMP 36.2; O2SAT 99
[2020-10-20 16:57] LABS: Glucose Point of Care 136 (65-105)
[2020-10-20] MEDS: INSULIN HUMAN ISOPHAN/REGULAR 70/30 (*BKC) 100 UNITS/ML 30 UNITS SUB-Q (17:16)
[2020-10-20] MEDS: WARFARIN (*PBKC) 7.5 MG TABLET PO (17:16)
[2020-10-20 20:45] VITALS: BP 145/76; PULSE 59; RESP 16; TEMP 36.4; O2SAT 98
[2020-10-20 20:47] VITALS: PULSE 62
[2020-10-20] MEDS: OMEGA 3 POLYUNSAT FATTY ACIDS 1 GM CAP 2 GM PO (20:47)
[2020-10-20] MEDS: VITAMIN E 100 UNIT CAPSULE 200 UNIT PO (20:47)
[2020-10-20] MEDS: METOPROLOL SUCCINATE EXT REL 100 MG TABCR BY MOUTH (20:47)
[2020-10-20 21:09] LABS: Glucose Point of Care 183 (65-105)
[2020-10-21] MEDS: CEPHALEXIN 500 MG CAPSULE PO ×5 (00:10→23:02)
[2020-10-21 04:25] VITALS: BP 132/79; PULSE 61; RESP 18; TEMP 36.7; O2SAT 97
[2020-10-21 05:16] LABS: Basophils Absolute Auto 0.1 K/mm3 (0.0-0.1); Basophils Percent Auto 0.8 % (0.2-1.2); Eosinophils Absolute Auto 0.4 K/mm3 (0-0.3); Eosinophils Percent Auto 5.3 % (0-4.4); Hematocrit 40.7 % (42.0-52.0); Hemoglobin 13.5 g/dL (14.0-18.0); Immature Granulocyte Absolute 0.27 K/mm3 (0.00-0.031); Immature Granulocyte Percent A 3.8 % (0-0.5); Lymphocytes Absolute Auto 2.92 K/mm3 (0.9-3.2); Mean Corpuscular HGB Conc 33.2 g/dl (32-36); Mean Corpuscular Hemoglobin 28.3 pg (26-34); Mean Corpuscular Volume 85.3 fl (80-100); Mean Platelet Volume 10.8 fl (7.4-10.4); Monocytes Absolute Auto 0.5 K/mm3 (0.1-0.6); Monocytes Percent Auto 7.6 % (2.6-8.5); Neutrophils Percent Auto 41.5 % (45.5-73.1); Platelet Count Result 177 k/mm3 (150-375); Red Blood Count 4.77 M/mm3 (4.6-6.20); Red Cell Distribution Width 15.2 % (11.5-14.5); White Blood Count 7.1 K/mm3 (4.5-10.0)
[2020-10-21 05:28] LABS: INR 1.3; Prothrombin Time 17.2 Seconds (11.1-14.7)
[2020-10-21 05:31] LABS: Anion Gap 6 mmol/L (8-16); Blood Urea Nitrogen 14 mg/dL (9-20); Calcium 8.7 mg/dL (8.4-10.2); Carbon Dioxide 34 mmol/L (22-30); Chloride 98 mmol/L (98-107); Estimated CRCL calculation 110 ml/min; Estimated Glomerular Filt Rate > 60; Glucose 112 mg/dL (75-110); Magnesium 1.7 mg/dL (1.6-2.3); Potassium 3.5 mmol/L (3.4-5.0); Sodium 138 mmol/L (137-145)
[2020-10-21 07:28] LABS: Glucose Point of Care 139 (65-105)
[2020-10-21 09:12] VITALS: PULSE 70
[2020-10-21] MEDS: METOPROLOL SUCCINATE EXT REL 100 MG TABCR 200 MG BY MOUTH (09:12)
[2020-10-21] MEDS: ATORVASTATIN 40 MG TABLET PO (09:12)
[2020-10-21] MEDS: PANTOPRAZOLE 40 MG TABLET PO ×2 (09:14→16:58)
[2020-10-21] MEDS: ESCITALOPRAM OXALATE 10 MG TABLET 20 MG PO (09:14)
[2020-10-21] MEDS: LORATADINE 10 MG TABLET PO (09:14)
[2020-10-21] MEDS: buPROPion HCL XL (24 HR) 150 MG TABCR 300 MG PO (09:14)
[2020-10-21 09:15] VITALS: PULSE 70; RESP 18; O2SAT 97
[2020-10-21] MEDS: DIVALPROEX SODIUM 250 MG TABEC 500 MG PO ×2 (09:15→20:33)
[2020-10-21] MEDS: FUROSEMIDE 80 MG TABLET PO (09:15)
[2020-10-21] MEDS: DOXYCYCLINE HYCLATE 100 MG TABLET PO ×2 (09:15→20:33)
[2020-10-21] MEDS: INSULIN HUMAN ISOPHAN/REGULAR 70/30 (*BKC) 100 UNITS/ML 50 UNITS SUB-Q (09:19)
[2020-10-21 11:22] LABS: Glucose Point of Care 279 (65-105)
[2020-10-21] MEDS: INSULIN ASPART (*BKC) 100 UNITS/ML SUB-Q ×2 (11:35→16:59)
--- NOTE | 2020-10-21 12:42 | PM.IMPN ---
Progress Note: A&P Assessment and Plan (1) Cellulitis of left lower leg: Code(s): L03.116 - Cellulitis of left lower limb Status: Acute Assessment and Plan: Area of erythema/warmth concerning for cellulitis; much improved Continue Keflex 500 mg Q6hr and Doxycycline 100 mg Q12hr PO; likely continue through 10/25 Monitor overnight Likely discharge to SNF awaiting insurance (2) Bilateral leg weakness: Code(s): R29.898 - Other symptoms and signs involving the musculoskeletal system Status: Acute Assessment and Plan: With frequent falls at home and decreased ADLs at home. PT/OT following Patient to discharge to SNF if insurance auth approves. Home with PT/OT if not (3) Hyperglycemia due to type 2 diabetes mellitus: Code(s): E11.65 - Type 2 diabetes mellitus with hyperglycemia Status: Acute Assessment and Plan: A1c was 8.7 last month. BGL 100s this morning Continue home 70/30 humulin Accuchecks ACHS, hypoglycemia protocol, correctional insulin, diabetic diet (4) Falls frequently: Code(s): R29.6 - Repeated falls Status: Acute Assessment and Plan: Please see above (5) Obstructive sleep apnea: Code(s): G47.33 - Obstructive sleep apnea (adult) (pediatric) Status: Acute Assessment and Plan: Continue with CPAP (6) Mixed hyperlipidemia: Code(s): E78.2 - Mixed hyperlipidemia Status: Acute Assessment and Plan: Continue with [place] 3 and atorvastatin (7) Anxiety and depression: Code(s): F41.9 - Anxiety disorder, unspecified; F32.9 - Major depressive disorder, single episode, unspecified Status: Acute Assessment and Plan: No acute issues Continue home medications (8) Chronic a-fib: Code(s): I48.20 - Chronic atrial fibrillation, unspecified Status: Chronic Assessment and Plan: Rate controlled. On warfarin chronically. 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 Patient states he feels better today. He thinks his let lower leg redness and pain have improved. Hopeful discharge soon to [place] rehab unit. No specific complaints redness in leg is improving. Review of Systems Review of Systems: All systems reviewed & are unremarkable except as noted in HPI and below Exam Narrative: Exam Narrative: General: Patient in bed HEENT: Normocephalic Cardiovascular: Normal rate, irregularly irregular.. Respiratory: Non-labored breathing. Abdomen: Soft, obese, non-tender, non-distended, bowel sounds present. Extremities: Peripheral pulses intact. No edema. Improvement of area of erythema noted in left anterior, medial and posterior left lower leg. no induration redness clearing well on left mid graham Neuro: No focal neurological deficits. Speech is clear. Objective Data Vital Signs Vital Signs: Vital Signs - 24 hr 10/20/20 13:36 10/20/20 20:45 10/20/20 20:47 Temperature 36.2 C L 36.4 C Pulse Rate 63 59 L 62 Respiratory Rate 18 16 Blood Pressure 138/56 L 145/76 H Pulse Oximetry 99 98 10/21/20 04:25 10/21/20 09:12 10/21/20 09:15 Temperature 36.7 C Pulse Rate 61 70 70 Respiratory Rate 18 18 Blood Pressure 132/79 Pulse Oximetry 97 97 Intake/Output Intake/Output: Intake & Output 10/18/20 10/19/20 10/20/20 10/21/20 23:59 23:59 23:59 23:59 Intake Total 4155 2450 2110 780 Output Total 1300 2350 3100
--- NOTE | 2020-10-21 13:44 | PCOTNOTE ---
Attempted to see patient for OT, patient declined, stating he was tired. Will continue plan of care tomorrow.
[2020-10-21 13:50] VITALS: BP 138/56; PULSE 80; RESP 20; TEMP 36.2; O2SAT 100
[2020-10-21 16:37] LABS: Glucose Point of Care 221 (65-105)
[2020-10-21] MEDS: INSULIN HUMAN ISOPHAN/REGULAR 70/30 (*BKC) 100 UNITS/ML 30 UNITS SUB-Q (17:00)
[2020-10-21 20:32] VITALS: PULSE 60
[2020-10-21] MEDS: OMEGA 3 POLYUNSAT FATTY ACIDS 1 GM CAP 2 GM PO (20:32)
[2020-10-21] MEDS: METOPROLOL SUCCINATE EXT REL 100 MG TABCR BY MOUTH (20:32)
[2020-10-21] MEDS: VITAMIN E 100 UNIT CAPSULE 200 UNIT PO (20:33)
[2020-10-21 20:48] LABS: Glucose Point of Care 260 (65-105)
[2020-10-21 22:00] VITALS: BP 178/70; PULSE 60; RESP 20; TEMP 36.4; O2SAT 98
[2020-10-22 05:26] VITALS: BP 150/77; PULSE 61; RESP 18; TEMP 36.4; O2SAT 98
[2020-10-22] MEDS: CEPHALEXIN 500 MG CAPSULE PO ×2 (05:31→12:21)
[2020-10-22 06:23] LABS: INR 1.2; Prothrombin Time 16.2 Seconds (11.1-14.7)
[2020-10-22] MEDS: INSULIN HUMAN ISOPHAN/REGULAR 70/30 (*BKC) 100 UNITS/ML 50 UNITS SUB-Q (07:15)
[2020-10-22 07:45] LABS: Glucose Point of Care 130 (65-105)
[2020-10-22] MEDS: buPROPion HCL XL (24 HR) 150 MG TABCR 300 MG PO (08:52)
[2020-10-22] MEDS: DIVALPROEX SODIUM 250 MG TABEC 500 MG PO (08:52)
[2020-10-22 08:53] VITALS: PULSE 61
[2020-10-22] MEDS: DOXYCYCLINE HYCLATE 100 MG TABLET PO (08:53)
[2020-10-22] MEDS: METOPROLOL SUCCINATE EXT REL 100 MG TABCR 200 MG BY MOUTH (08:53)
[2020-10-22] MEDS: ESCITALOPRAM OXALATE 10 MG TABLET 20 MG PO (08:53)
[2020-10-22] MEDS: FUROSEMIDE 80 MG TABLET PO (08:53)
[2020-10-22] MEDS: ATORVASTATIN 40 MG TABLET PO (08:53)
[2020-10-22] MEDS: PANTOPRAZOLE 40 MG TABLET PO ×2 (08:53→16:33)
[2020-10-22] MEDS: LORATADINE 10 MG TABLET PO (08:53)
--- NOTE | 2020-10-22 11:12 | PM.DS ---
DS: Admitting Diagnosis Admitting Diagnosis Admitting Diagnosis: Weakness DS: Discharge Diagnosis Discharge Diagnosis (1) Cellulitis of left lower leg: Code(s): L03.116 - Cellulitis of left lower limb Status: Acute Assessment and Plan: Area of erythema/warmth concerning for cellulitis; much improved Continue Keflex 500 mg Q6hr and Doxycycline 100 mg Q12hr PO (2) Bilateral leg weakness: Code(s): R29.898 - Other symptoms and signs involving the musculoskeletal system Status: Acute Assessment and Plan: With frequent falls at home and decreased ADLs at home. PT/OT following Patient to discharge to SNF if insurance auth approves. If not Home health services (3) Hyperglycemia due to type 2 diabetes mellitus: Code(s): E11.65 - Type 2 diabetes mellitus with hyperglycemia Status: Chronic Assessment and Plan: A1c was 8.7 last month. Chronic and stable Continue home 70/30 humulin (4) Falls frequently: Code(s): R29.6 - Repeated falls Status: Acute Assessment and Plan: Please see above (5) Obstructive sleep apnea: Code(s): G47.33 - Obstructive sleep apnea (adult) (pediatric) Status: Acute Assessment and Plan: Continue with CPAP (6) Mixed hyperlipidemia: Code(s): E78.2 - Mixed hyperlipidemia Status: Acute Assessment and Plan: Continue with [place] 3 and atorvastatin (7) Anxiety and depression: Code(s): F41.9 - Anxiety disorder, unspecified; F32.9 - Major depressive disorder, single episode, unspecified Status: Acute Assessment and Plan: No acute issues Continue home medications (8) Chronic a-fib: Code(s): I48.20 - Chronic atrial fibrillation, unspecified Status: Chronic Assessment and Plan: Rate controlled. On warfarin chronically. 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 Patient states he feels better today, his lower leg redness and pain much improved, pt can be discharged home with home health and PT services at home. Time Spent with Patient Time attestation: Total time spent providing and/or coordinating discharge services:40 minutes on day of discharge Exam Narrative: Exam Narrative: General: Patient in bed HEENT: Normocephalic Cardiovascular: Normal rate, irregularly irregular Respiratory: Clear lung larsen Abdomen: Soft, obese, non-tender, non-distended, bowel sounds present. Extremities: Peripheral pulses intact. No edema. Minimal erythema noted in left anterior, medial and posterior left lower leg. no induration Neuro: No focal neurological deficits. Speech is clear. DS: Data Data Completed and Pending Labs on day of discharge: Labs from last 24 hours 10/22/20 10/22/20 10/21/20 07:02 05:42 20:29 PT 16.2 H INR 1.2 POC Capillary Glucose 130 H 260 H 10/21/20 10/21/20 16:33 11:16 PT INR POC Capillary Glucose 221 H 279 H Preliminary micro results at discharge 10/18/20 11:14 Blood Culture - Preliminary Blood 10/18/20 10:28 Blood Culture - Preliminary Blood Discharge Plan Discharge Attending physician on discharge: Ievth Bianchi Discharging Clinician: Iveth Bianchi Anticipated Discharge Date/Time: 10/22/20 02:00 Patient Disposition: Home Health Service Activity: as tolerated Diet: diabetic Discharge Instructions: Discharge instructi
[2020-10-22 14:00] VITALS: BP 129/68; PULSE 60; RESP 20; TEMP 36.1; O2SAT 97
[2020-10-22] MEDS: WARFARIN (*PBKC) 7.5 MG TABLET PO (16:32)
[2020-10-22 22:10] LABS: Glucose Point of Care 190 (65-105)
== END 2020-10-22 17:35 | disposition home health service (06) ==
LOC: ANHED 16:44 → ANH2MED 16:50
PROVIDERS: Nurse Practitioner; Physician Assistant; Admitting Provider Internal Medicine; Emergency Provider Emergency Medicine; PCP Family Medicine; Visit Provider Family Medicine
DX: L03.116 Cellulitis of left lower limb (principal); Z20.828 Contact with and (suspected) exposure to other viral communicable diseases; R53.1 Weakness; M79.662 Pain in left lower leg; R29.6 Repeated falls; E11.65 Type 2 diabetes mellitus with hyperglycemia; E66.9 Obesity, unspecified; E11.42 Type 2 diabetes mellitus with diabetic polyneuropathy; E78.2 Mixed hyperlipidemia; F41.8 Other specified anxiety disorders; G47.33 Obstructive sleep apnea (adult) (pediatric); I48.20 Chronic atrial fibrillation, unspecified; I10 Essential (primary) hypertension; R79.1 Abnormal coagulation profile; Z95.0 Presence of cardiac pacemaker; Z79.01 Long term (current) use of anticoagulants; Z79.4 Long term (current) use of insulin; Z68.38 Body mass index [BMI] 38.0-38.9, adult
CPT/HCPCS: 36415; 36600; 70450; 71045; 80048; 80053; 80164; 81001; 82010; 82805; 83605; 83735; 84100; 84443; 85025; 85027; 85055; 85610; 85730; 87040; 87635; 93005; 93970; 94660; 96361; 96365; 97110; 97116; 97161; 97165; 97530; 97535; 99285; A9270; C9803; G0378; J1815; J3475; J7030; J7050; J7120; U0003

== ENCOUNTER 2020-10-27 12:54 | Outpatient (NON) | payer OTHER, MEDICARE, SELFPAY ==
[2020-10-27 13:42] LABS: INR 1.3; Prothrombin Time 16.6 Seconds (11.1-14.7)
== END 2020-10-27 12:55 ==
LOC: HOME HLTH 12:57
PROVIDERS: Physician Assistant; PCP Family Medicine; Visit Provider Family Medicine
DX: Z51.81 Encounter for therapeutic drug level monitoring (principal); Z79.01 Long term (current) use of anticoagulants; I48.20 Chronic atrial fibrillation, unspecified; R79.1 Abnormal coagulation profile
CPT/HCPCS: 85610

== ENCOUNTER 2020-11-25 10:56 | Outpatient (NON) | payer MEDICARE, SELFPAY ==
[2020-11-25 11:21] LABS: Prothrombin Time 13.4 Seconds (11.1-14.7)
== END 2020-11-25 10:57 ==
PROVIDERS: PCP Family Medicine; Visit Provider Family Medicine
DX: I48.91 Unspecified atrial fibrillation (principal)
CPT/HCPCS: 85610

== ENCOUNTER 2021-01-02 11:47 | Outpatient (CLI) | payer MEDICARE, SELFPAY ==
[2021-01-02 12:08] LABS: Basophils Absolute Auto 0.1 K/mm3 (0.0-0.1); Basophils Percent Auto 0.8 % (0.2-1.2); Eosinophils Percent Auto 0.1 % (0-4.4); Hematocrit 44.8 % (42.0-52.0); Hemoglobin 14.9 g/dL (14.0-18.0); Immature Granulocyte Absolute 0.12 K/mm3 (0.00-0.031); Immature Granulocyte Percent A 1.4 % (0-0.5); Lymphocytes Absolute Auto 3.28 K/mm3 (0.9-3.2); Lymphocytes Percent Auto 38.1 % (18.3-44.2); Mean Corpuscular HGB Conc 33.3 g/dl (32-36); Mean Corpuscular Hemoglobin 30.8 pg (26-34); Mean Corpuscular Volume 92.6 fl (80-100); Mean Platelet Volume 11.2 fl (7.4-10.4); Monocytes Absolute Auto 0.7 K/mm3 (0.1-0.6); Monocytes Percent Auto 8.5 % (2.6-8.5); Neutrophils Absolute Auto 4.4 K/mm3 (1.3-6.7); Neutrophils Percent Auto 51.1 % (45.5-73.1); Platelet Count Result 236 k/mm3 (150-375); Red Blood Count 4.84 M/mm3 (4.6-6.20); Red Cell Distribution Width 13.5 % (11.5-14.5); White Blood Count 8.6 K/mm3 (4.5-10.0)
[2021-01-02 12:26] LABS: Potassium 4.9 mmol/L (3.4-5.0)
[2021-01-02 12:43] LABS: Hemoglobin A1C 7.7 % (<5.7)
[2021-01-02 12:49] LABS: Alanine Aminotransferase 19 U/L (4-50); Albumin Level 4.5 g/dL (3.5-5.1); Alkaline Phosphatase 122 U/L (38-126); Anion Gap 9 mmol/L (8-16); Aspartate Amino Transferase 23 U/L (17-59); Bilirubin,Total 0.5 mg/dL (0.2-1.3); Blood Urea Nitrogen 28 mg/dL (9-20); Calcium 9.7 mg/dL (8.4-10.2); Carbon Dioxide 27 mmol/L (22-30); Chloride 102 mmol/L (98-107); Estimated Glomerular Filt Rate > 60; Glucose 267 mg/dL (75-110); Magnesium 1.6 mg/dL (1.6-2.3); Sodium 138 mmol/L (137-145)
== END 2021-01-02 11:48 | disposition home or self-care (01) ==
PROVIDERS: PCP Family Medicine; Visit Provider Nurse Practitioner Family
DX: R20.2 Paresthesia of skin (principal); E11.65 Type 2 diabetes mellitus with hyperglycemia; Z68.38 Body mass index [BMI] 38.0-38.9, adult; R29.898 Other symptoms and signs involving the musculoskeletal system
CPT/HCPCS: 36415; 80053; 82607; 83036; 83735; 85025

== ENCOUNTER 2021-02-17 17:14 | Emergency (ER) | payer MEDICARE, SELFPAY ==
[2021-02-17 17:18] VITALS: BP 166/90; PULSE 62; RESP 17; TEMP 36.5; O2SAT 97
[2021-02-17 18:02] LABS: Basophils Percent Auto 0.4 % (0.2-1.2); Eosinophils Percent Auto 0.1 % (0-4.4); Hematocrit 46.8 % (42.0-52.0); Hemoglobin 15.7 g/dL (14.0-18.0); Immature Granulocyte Absolute 0.05 K/mm3 (0.00-0.031); Immature Granulocyte Percent A 0.5 % (0-0.5); Lymphocytes Absolute Auto 2.77 K/mm3 (0.9-3.2); Lymphocytes Percent Auto 28.7 % (18.3-44.2); Mean Corpuscular HGB Conc 33.5 g/dl (32-36); Mean Corpuscular Hemoglobin 30.4 pg (26-34); Mean Corpuscular Volume 90.5 fl (80-100); Monocytes Absolute Auto 0.6 K/mm3 (0.1-0.6); Monocytes Percent Auto 6.6 % (2.6-8.5); Neutrophils Absolute Auto 6.2 K/mm3 (1.3-6.7); Neutrophils Percent Auto 63.7 % (45.5-73.1); Platelet Count Result 231 k/mm3 (150-375); Red Blood Count 5.17 M/mm3 (4.6-6.20); Red Cell Distribution Width 12.5 % (11.5-14.5); White Blood Count 9.7 K/mm3 (4.5-10.0)
[2021-02-17 18:12] LABS: Alanine Aminotransferase 19 U/L (4-50); Albumin Level 4.5 g/dL (3.5-5.1); Alkaline Phosphatase 94 U/L (38-126); Anion Gap 10 mmol/L (8-16); Aspartate Amino Transferase 24 U/L (17-59); Bilirubin,Total 0.6 mg/dL (0.2-1.3); Blood Urea Nitrogen 24 mg/dL (9-20); Calcium 9.3 mg/dL (8.4-10.2); Carbon Dioxide 27 mmol/L (22-30); Chloride 101 mmol/L (98-107); Estimated Glomerular Filt Rate > 60; Glucose 315 mg/dL (75-110); Lipase 226 U/L (23-300); Potassium 4.3 mmol/L (3.4-5.0); Sodium 138 mmol/L (137-145)
--- NOTE | 2021-02-17 19:41 | PC.NURSE ---
pt walked out of er, c/o taking too long.
== END 2021-02-17 19:53 | disposition left against medical advice (07) ==
LOC: ANHED 19:51
PROVIDERS: Emergency Medicine; PCP Family Medicine
DX: R11.2 Nausea with vomiting, unspecified (principal)
CPT/HCPCS: 36415; 80053; 83690; 85025; 99199

== ENCOUNTER 2021-04-07 13:20 | Outpatient (CLI) | payer MEDICARE, SELFPAY ==
[2021-04-07 14:21] LABS: Basophils Absolute Auto 0.1 K/mm3 (0.0-0.1); Basophils Percent Auto 0.7 % (0.2-1.2); Eosinophils Absolute Auto 0.2 K/mm3 (0-0.3); Eosinophils Percent Auto 2.9 % (0-4.4); Hematocrit 44.5 % (42.0-52.0); Immature Granulocyte Absolute 0.07 K/mm3 (0.00-0.031); Immature Granulocyte Percent A 0.9 % (0-0.5); Lymphocytes Absolute Auto 2.22 K/mm3 (0.9-3.2); Lymphocytes Percent Auto 27.2 % (18.3-44.2); Mean Corpuscular HGB Conc 33.7 g/dl (32-36); Mean Corpuscular Hemoglobin 29.9 pg (26-34); Mean Corpuscular Volume 88.8 fl (80-100); Mean Platelet Volume 12.6 fl (7.4-10.4); Monocytes Absolute Auto 0.5 K/mm3 (0.1-0.6); Monocytes Percent Auto 6.6 % (2.6-8.5); Neutrophils Percent Auto 61.7 % (45.5-73.1); Platelet Count Result 180 k/mm3 (150-375); Red Blood Count 5.01 M/mm3 (4.6-6.20); Red Cell Distribution Width 12.7 % (11.5-14.5); White Blood Count 8.2 K/mm3 (4.5-10.0)
[2021-04-07 14:22] LABS: Add Urine Microscopic? YES; Appearance Urine Clear (Clear); Bacteria Urine Trace /hpf; Bilirubin Urine Negative (Negative); Blood Urine Negative (Negative); Color Urine Yellow (Yellow); Glucose Urine UA 3+ mg/dL (Negative); Ketones Urine Trace mg/dL (Negative); Leukocyte Esterase Ur Negative LEU/UL (NEGATIVE); Mucus Urine Rare /lpf; Nitrate Urine Negative (Negative); Protein Urine 1+ mg/dL (Negative); RBC Urine 0-2 /hpf (0-2); Squamous Epithelial Cell Urine Rare /hpf (Few); Urobilinogen Urine Negative mg/dL (<2.0); WBC Urine 0-3 /hpf (0-3)
[2021-04-07 14:23] LABS: Specific Grav Ur 1.033 (1.001-1.035)
[2021-04-07 14:35] LABS: Anion Gap 17 mmol/L (8-16); Blood Urea Nitrogen 19 mg/dL (9-20); Calcium 9.9 mg/dL (8.4-10.2); Carbon Dioxide 17 mmol/L (22-30); Chloride 104 mmol/L (98-107); Estimated Glomerular Filt Rate > 60; Glucose 338 mg/dL (75-110); Potassium 4.5 mmol/L (3.4-5.0); Sodium 138 mmol/L (137-145)
[2021-04-07 14:36] LABS: INR 0.8; Prothrombin Time 12.1 Seconds (11.1-14.7)
[2021-04-07 14:57] LABS: Hemoglobin A1C 8.6 % (<5.7)
== END 2021-04-07 13:21 | disposition home or self-care (01) ==
PROVIDERS: PCP Family Medicine; Visit Provider Family Medicine
DX: I10 Essential (primary) hypertension (principal); I48.20 Chronic atrial fibrillation, unspecified; R32 Unspecified urinary incontinence; E11.65 Type 2 diabetes mellitus with hyperglycemia
CPT/HCPCS: 36415; 80048; 81001; 83036; 85025; 85610

== ENCOUNTER 2021-04-30 17:37 | Outpatient (CLI) | payer MEDICARE, SELFPAY | END 2021-04-30 17:38 | disposition home or self-care (01) | LOC: ANHLAB 17:38 | PROVIDERS: PCP Family Medicine; Visit Provider Family Medicine | DX: R45.4 Irritability and anger (principal) | CPT/HCPCS: 36415; 80164; 80165; 84443 ==

== ENCOUNTER 2021-06-13 19:34 | Emergency (ER) | payer MEDICARE, SELFPAY ==
[2021-06-13 19:36] VITALS: BP 187/99; PULSE 60; RESP 16; TEMP 35.6; O2SAT 100
--- NOTE | 2021-06-13 19:51 | ECG_ITS ---
Measurements Intervals [place] Rate: 60 P: ME: 0 QRS: -82 QRSD: 157 T: 108 QT: 467 QTc: 467 Interpretive Statements ELECTRONIC VENTRICULAR PACEMAKER UNDERLYING PROBABLY ATRIAL FIBRILLATION BASELINE ARTIFACT- I, II, III NO FURTHER INTERPRETATION IS POSSIBLE ABNORMAL ECG Electronically Signed On 06-13-2021 20:19:22 CDT by Andrew Davidson D.O.
--- NOTE | 2021-06-13 20:06 | ED.GENADULT ---
HPI - General Adult General Chief complaint: Psychiatric Symptoms Stated complaint: SI Time Seen by Provider: 06/13/21 19:49 History of Present Illness HPI narrative: Patient 60-year-old gentleman who presents the emergency department with chief complaint of suicidal ideation. Patient reports that he is a diabetic and has history of atrial fibrillation. The patient reports he has had a pacemaker placed about a year ago for A. fib. The patient reports that over the last 2 weeks he has been more depressed and has been having thoughts of wanting to harm himself. Patient states today he was planning on harming himself by hanging himself. Patient states that he was getting ready to hang himself and decided that he needed help and did not actually hang himself today. Patient denies overdose denies any other plan to harm himself reports that he has not been hospitalized for suicidal ideation or depression before in the past. Related Data Home Medications Medication Instructions Recorded Confirmed omega-3 fatty acids 1,000 mg 2,000 mg PO HS 05/28/20 04/07/21 capsule metoprolol succinate 100 mg See Rx Instructions .ROUTE 06/11/20 04/07/21 tablet,extended release 24 hr .COMPLEX tablet vitamin E 200 unit PO HS 10/16/20 04/07/21 Allergies Allergy/AdvReac Type Severity Reaction Status Date / Time No Known Allergies Allergy Verified 04/07/21 09:26 Review of Systems Review of Systems: A 10 system review of systems was completed on the patient and is negative except for what is stated in the HPI. Nursing and ancillary documentation was reviewed. [facility] Past Medical History Medical History Anticoagulation management encounter Atrial fibrillation with RVR BMI 37.0-37.9, adult BMI 38.0-38.9,adult Cardiac defibrillator in place Chronic a-fib Degenerative lumbar disc Depression Diabetes Essential (primary) hypertension Essential hypertension Glaucoma Hyperlipidemia, unspecified Hypertension Incontinence of bowel Obesity Obstructive sleep apnea Pacemaker Progressive neurological deficit SOB (shortness of breath) Urinary incontinence Surgical History Surgical History History of cholecystectomy History of knee replacement S/P TKR (total knee replacement) Family History Family History Father Diabetes mellitus Family history of coronary artery disease Mother Diabetes mellitus Family history of Alzheimer's disease Sibling Diabetes mellitus Social History Social History Social History: The patient lives at home with his . And his is the durable power county attorney for healthcare. The patient is a full code. He has 1 child. He is disabled. The patient is a lifelong nonsmoker. Does not drink or use illicit drugs. Alcohol intake: former Substance use: never Substance use type: does not use Gender identity (if verbalized by the patient): Male Spiritual care concerns: No Agree to blood products: Yes Exam Narrative: GENERAL: Well-appearing, well-nourished, and in no acute distress. HEAD: Normocephalic, atraumatic. EYES: PERRLA and EOMI. ENT: Nares clear, no rhinorrhea or epistaxis. Mucous membranes moist. NECK: Supple. CHEST: Clear to auscultation. No respiratory distress. HEART: Regular rate and rhythm. No murmur heard. Normal peripheral pulses. ABDOMEN: Soft, nontender, nondistended, normal active bowel sounds. EXTREMITIES: Normal range of motion. No edema. SKIN: Warm, dry, no rash. NEURO: No focal deficits. Alert and oriented x3. PSYCH: Normal mood and affect. Course Course Emergency Course: EKG is a paced rhythm with a rate of 60 Patient is medically cleared for psychiatric evaluation Patient was accept
[2021-06-13 21:12] LABS: Basophils Absolute Auto 0.1 K/mm3 (0.0-0.1); Basophils Percent Auto 0.7 % (0.2-1.2); Eosinophils Absolute Auto 0.2 K/mm3 (0-0.3); Eosinophils Percent Auto 2.2 % (0-4.4); Hematocrit 45.5 % (42.0-52.0); Hemoglobin 15.3 g/dL (14.0-18.0); Immature Granulocyte Absolute 0.04 K/mm3 (0.00-0.031); Immature Granulocyte Percent A 0.5 % (0-0.5); Lymphocytes Absolute Auto 2.39 K/mm3 (0.9-3.2); Lymphocytes Percent Auto 32.7 % (18.3-44.2); Mean Corpuscular HGB Conc 33.6 g/dl (32-36); Mean Corpuscular Hemoglobin 28.8 pg (26-34); Mean Corpuscular Volume 85.5 fl (80-100); Monocytes Absolute Auto 0.5 K/mm3 (0.1-0.6); Neutrophils Absolute Auto 4.2 K/mm3 (1.3-6.7); Neutrophils Percent Auto 56.9 % (45.5-73.1); Platelet Count Result 178 k/mm3 (150-375); Red Blood Count 5.32 M/mm3 (4.6-6.20); Red Cell Distribution Width 12.1 % (11.5-14.5); White Blood Count 7.3 K/mm3 (4.5-10.0)
[2021-06-13 21:15] LABS: Add Urine Microscopic? YES; Appearance Urine Clear (Clear); Bilirubin Urine Negative (Negative); Blood Urine Negative (Negative); Color Urine Yellow (Yellow); Glucose Urine UA 3+ mg/dL (Negative); Ketones Urine Negative (Negative); Leukocyte Esterase Ur Trace LEU/UL (Negative); Nitrate Urine Negative (Negative); Protein Urine 1+ mg/dL (Negative); RBC Urine 0-2 /hpf (0-2); Urobilinogen Urine Negative mg/dL (<2.0); WBC Urine 0-3 /hpf
[2021-06-13 21:20] LABS: Partial Thromboplastin Time 27.5 SECONDS (22.3-36.8); Prothrombin Time 12.8 Seconds (11.1-14.7)
[2021-06-13 21:21] LABS: Specific Grav Ur 1.037 (1.001-1.035)
[2021-06-13 21:22] LABS: Alanine Aminotransferase 18 U/L (4-50); Alkaline Phosphatase 100 U/L (38-126); Anion Gap 10 mmol/L (8-16); Aspartate Amino Transferase 22 U/L (17-59); Bilirubin,Total 0.4 mg/dL (0.2-1.3); Blood Urea Nitrogen 20 mg/dL (9-20); Calcium 9.1 mg/dL (8.4-10.2); Carbon Dioxide 23 mmol/L (22-30); Chloride 99 mmol/L (98-107); Estimated CRCL calculation 88 ml/min; Estimated Glomerular Filt Rate > 60; Glucose 257 mg/dL (65-110); Sodium 132 mmol/L (137-145)
[2021-06-13 21:23] LABS: Acetaminophen < 10 ug/mL (10-30); Ethanol < 10 mg/dL (<10); Salicylate < 1.0 mg/dL (2-20)
[2021-06-13 21:33] LABS: Amphetamine Screen Urine Negative (Negative); Barbiturate Screen Urine Negative (Negative); Benzodiazepines Screen Urine Negative (Negative); Cannabinoid Screen Urine Negative (Negative); Cocaine Screen Urine Negative (Negative); Methadone Screen Urine Negative (Negative); Opiate Screen Urine Negative (Negative); Phencyclidine Screen Urine Negative (Negative)
[2021-06-13 22:02] LABS: Valproic Acid < 10.0 ug/mL (50-120)
[2021-06-13 23:32] LABS: EDCOVIDSCREEN Negative (Negative)
[2021-06-14 00:09] VITALS: BP 179/93; PULSE 60; RESP 16; O2SAT 99
--- NOTE | 2021-06-14 01:14 | PC.NURSE ---
Per crisis, pt will be a voluntary admit. [facility] reports having bed for pt, chart sent via fax at this time.
--- NOTE | 2021-06-14 01:25 | PC.NURSE ---
Per crisis, [facility] also contacted for placement.
--- NOTE | 2021-06-14 02:01 | PC.NURSE ---
Pts chart faxed [facility] at this time.
--- NOTE | 2021-06-14 03:14 | PC.NURSE ---
Received call from Betty at [facility] requesting CBC and COVID test for pt. Results were cut off in original fax. Results sent via fax at this time.
--- NOTE | 2021-06-14 03:53 | PC.NURSE ---
Received call from Hira from [facility] requesting voluntary paperwork be signed and re-faxed. States that facility will most likely accept pt, but need signature. Paperwork sent over via fax at this time.
--- NOTE | 2021-06-14 04:03 | PC.NURSE ---
Received call from Betty at [facility]. Facility accepted pt, RM [id number]. Call for nurse report.
--- NOTE | 2021-06-14 04:32 | PC.NURSE ---
called [facility] to request transport. After getting approval from pigment making supervisor for the long distance transfer they will call with an ETA.
[2021-06-14 05:58] VITALS: BP 144/73; PULSE 60; RESP 18; O2SAT 99
[2021-06-14 06:05] LABS: Glucose Point of Care 231 mg/dl (65-105)
--- NOTE | 2021-06-14 06:23 | PC.NURSE ---
[facility] called with ETA. Man is on the way - coming from [facility] [place].
--- NOTE | 2021-06-14 06:55 | PC.NURSE ---
[facility] here.
--- NOTE | 2021-06-14 07:10 | PC.NURSE ---
[facility] notified of pts departure from ED via EMS.
== END 2021-06-14 07:05 ==
PROVIDERS: Emergency Provider Emergency Medicine; PCP Family Medicine
DX: R45.851 Suicidal ideations (principal); F32.9 Major depressive disorder, single episode, unspecified; Z20.822 Contact with and (suspected) exposure to COVID-19; I48.20 Chronic atrial fibrillation, unspecified; E11.9 Type 2 diabetes mellitus without complications; I10 Essential (primary) hypertension; H40.9 Unspecified glaucoma; E78.5 Hyperlipidemia, unspecified; G47.33 Obstructive sleep apnea (adult) (pediatric); Z95.810 Presence of automatic (implantable) cardiac defibrillator; Z96.659 Presence of unspecified artificial knee joint; Z79.01 Long term (current) use of anticoagulants; Z79.4 Long term (current) use of insulin; Z79.899 Other long term (current) drug therapy
CPT/HCPCS: 36415; 80053; 80164; 80307; 81001; 82948; 84443; 85025; 85610; 85730; 87426; 93005; 99285; C9803